=== PATIENT | female | born 1955 | race Caucasian/White ===

== ENCOUNTER 2020-09-30 09:56 | Outpatient (RCR) | payer MEDICAID, SELFPAY ==
[2020-09-30] MEDS: COVID-19 VACC, MRNA(PFIZER)/PF 30 MCG/0.3 ML SYRINGE IM (17:10)
[2020-10-21] MEDS: COVID-19 VACC, MRNA(PFIZER)/PF 30 MCG/0.3 ML SYRINGE IM (17:07)
== END 2020-12-27 23:59 ==
LOC: IMMUN 09:56
PROVIDERS: PCP Family Medicine; Visit Provider Family Medicine
DX: Z23 Encounter for immunization (principal)
CPT/HCPCS: 0001A; 0002A; 91300

== ENCOUNTER 2022-02-11 13:03 | Inpatient (IN) | payer MEDICARE, MEDICAID, SELFPAY ==
[2022-02-11] VITALS (29 sets, daily range): BP systolic 129–209; BP diastolic 79–115; PULSE 68–95; RESP 13–21; TEMP 35.8–37; O2SAT 93–100; BMI 29.7
--- NOTE | 2022-02-11 13:08 | EKG12_ITS ---
Test Reason : cp Blood Pressure : / mmHG Vent. Rate : 090 BPM Atrial Rate : 090 BPM P-R Int : 160 ms QRS Dur : 082 ms QT Int : 396 ms P-R-T Axes : 020 -67 120 degrees QTc Int : 484 ms Normal sinus rhythm Left anterior fascicular block Minimal voltage criteria for LVH, may be normal variant ( George product ) ST & T wave abnormality, consider anterolateral ischemia Prolonged QT Abnormal ECG Confirmed by CHARLINE WARNER, PAULETTE ([id number]), purchase request editor JAZZY GAMBOA ([id number]) on 02/13/2022 9:08:41 AM Referred By: Confirmed By:PAULETTE OLIVIER MD
--- NOTE | 2022-02-11 13:08 | RAD_ITS ---
STUDY: X-RAY CHEST REASON FOR EXAM: Female, 67 years old. chest pain TECHNIQUE: XR Chest 1 View COMPARISON: Prior comparison studies are not available for review at this time. FINDINGS: There is no demonstrated pleural abnormality. Cervical spine fusion hardware noted. Normal size heart. Normal mediastinum and mallory. Normal visualized pulmonary arteries. There is atherosclerotic calcification of the aortic arch with tortuosity. There are diffuse degenerative changes of the visualized thoracic spine. There is degenerative osteoarthritis of the bilateral shoulders. There is no demonstrated abnormality of the visualized soft tissue structures of the upper abdomen. RAD/Chest 1 View (Portable) IMPRESSION: There are no acute findings. Electronically Signed: Artem Blunt MD at 14:15 EDT ,
[2022-02-11 13:23] LABS: Absolute Lymphocyte Count 1.69 X10^3/uL (0.83-4.51); Absolute Neutrophil Count 6.8 X10^3/uL (2.0-7.7); Basophil# 0.03 X10^3/uL; Basophil% 0.3 % (0-1); Eosinophil# 0.04 X10^3/uL; Eosinophils% 0.4 % (0-5); Hematocrit 43.9 % (37-47); Hemoglobin 14.1 g/dL (12.0-15.0); Lymphocyte # 1.69 X10^3/ul (0.83-4.51); Lymphocyte % 18.3 % (19-41); Mean Corp Hgb Conc 32.1 g/dL (32-36); Mean Corpuscular Volume 87.3 fL (81-99); Monocyte# 0.69 X10^3/uL; Monocyte% 7.5 % (0-10); NRBC Flagged by Analyzer 0 % (0-5); Neutrophil # 6.78 X10^3/uL (2.7-7.7); Neutrophil % 73.2 % (47-70); Platelet Count 248 K/mm3 (150-450); RBC Distribution Width CV 13.7 % (11.6-14.6); RBC Distribution Width SD 43.2 fl (35.1-43.9); Red Blood Count 5.03 M/mm3 (4.2-5.4); White Blood Count 9.3 K/mm3 (4.4-11.0)
[2022-02-11 13:47] LABS: Anion Gap 8 (5-15); BUN 9 mg/dL (7-18); BUN/Creat Ratio 12.9 RATIO (10-20); Calcium,Total 9.3 mg/dL (8.5-10.1); Chloride 105 mmol/L (98-107); EST Glomerular Filtration Rate 90 mL/min (>60); Est Glom Filt Rate - Afr Amer 108 mL/min (>60); Estimated Creatinine Clearance 57.83 ml/min; Glucose 132 mg/dL (74-106); Sodium Level 138 mmol/L (136-145); Troponin-I HS 1920 pg/mL (3.0-54.0)
--- NOTE | 2022-02-11 13:54 | EDS_ITS ---
HPI History of Present Illness Chief Complaint: Chest Pain Detail of Chief Complaint: Chest pain that started 2 nights ago Informant: patient Onset/Context/Timing Current Severity: 12/29 Narrative Narrative: Patient presents to the emergency department chest pressure that started 2 nights ago. Patient states that she had an episode in the middle of the night 2 nights ago where she was awakened with severe chest pain radiating to her arms and neck and jaw. Patient began to sweat. She did not seek treatment. Patient had a repeat episode last night. She presents today with chest pressure that radiates into her neck and rates her pain a 6 out of 10. She is never had discomfort like this before. She does have history of prior A. fib. Patient denies recent travel or surgery. Prior Similar Symptoms: No PFSH PFS Medical History (Updated 02/11/22 @ 13:[address] Mimi Bess, DO) Atrial fibrillation Mdahuri's disease Sjogrens syndrome Home Medications cyanocobalamin (vitamin B-12) 1,000 mcg/mL injection solution 1 ml IM QMONTH 02/11/22 [History Last Taken Unknown] levothyroxine 150 mcg tablet 1 tab PO DAILY 02/11/22 [History Last Taken Unknown] metoprolol succinate 100 mg tablet,extended release 24 hr 100 mg PO DAILY 02/11/22 [History Last Taken Unknown] zolpidem 10 mg tablet 10 mg PO DAILY 02/11/22 [History Last Taken Unknown] Allergy/AdvReac Type Severity Reaction Status Date / Time codeine Allergy Swelling Verified 02/11/22 13:04 hydroxychloroquine Allergy Rash Verified 02/11/22 13:04 [From Plaquenil] mecamylamine Allergy Swelling Verified 02/11/22 13:04 morphine Allergy Anaphylaxis Verified 02/11/22 13:52 Sulfa (Sulfonamide Allergy Anaphylaxis Verified 02/11/22 13:52 Antibiotics) Social History Smoking Status: Never smoker ROS ROS ED Review of Systems ROS Unobtainable: other Constitutional Constitutional ED: Reports lethargy; Denies chills, fever(s), sweats or weight loss Eyes Eyes: Denies blurry vision, change in vision or diplopia ENT ENT ED: Denies rhinorrhea or sore throat Cardiovascular Cardiovascular: Reports chest pain and palpitations; Denies orthopnea or racing heartbeat Respiratory/Chest Respiratory/Chest: Reports dyspnea and dyspnea on exertion; Denies cough, orthopnea or sputum Gastrointestinal Gastrointestinal: Denies abdominal pain, diarrhea, nausea or vomiting Genitourinary Genitourinary ED: Denies dysuria, hematuria or urinary frequency Musculoskeletal Musculoskeletal: Denies arthralgias, back pain, myalgias or neck pain Integumentary Denies abscess, Abrasions or rash Neurologic Neurologic: Denies headache(s) or weakness Psychiatric Psychiatric: Denies anxiety, depression or suicidal thoughts Endocrine Endocrinology: Denies polydipsia, polyphagia or polyuria Hematologic/Lymphatic Hematologic/Lymphatic: Denies easy bleeding, easy bruising or lymphadenopathy Allergic/Immunologic Allergic/Immunologic ED: Denies mouth swelling, tongue swelling or urticaria EXAM Physical Exam Const Vital Signs: 02/11/22 13:04 02/11/22 13:38 02/11/22 13:43 Temperature 97.9 F Temperature Source Temporal Pulse Rate 85 86 Respiratory Rate 16 16 Respiratory Effort Short of Breath Blood Pressure 177/115 H 180/114 H Blood Pressure Mean 135 136 Pulse Ox 97 97 Oxygen Delivery Method Room Air Room Air 02/11/22 13:44 Temperature Temperature Source Pulse Rate Respiratory Rate Respiratory Effort Blood Pressure Blood Pressure Mean Pulse Ox Oxygen Delivery Method Room Air Positive well nourished and well developed General Appearance ED: well developed and NAD HEENT Reports TM's clear and moist mucous membranes normocephalic and atraumatic; Negative for trauma or tenderness Tympanic Membrane ED: Yes TM's clear Eyes PERRL and EOMs intact bilaterally General Eye ED: Negative for pale conjunctiva or scleral icterus Neck no lymphadenopathy, supple and no JVD General: Negative for tenderness Chest Wall inspection of chest normal and palpation of chest normal Chest: Negative for tenderness Resp normal respiratory effort and clear to auscultation bilaterally Effort and Inspection: Negative for respiratory distress or pain with movement Auscultation: Negative for rhonchi, wheezes or diminished lung sounds Cardio regular rate, regular rhythm, S1 normal heart sound, S2 normal heart sound and no murmurs Peripheral Pulses: pulses 2+ throughout GI normal to inspection, nondistended, normoactive bowel sounds, soft to palpation, non-tender, non-distended and no masses Back/Spine no CVA tenderness and no thoracic nor lumbar tenderness Extremity normal to inspection General Extremety ED: Negative for edema General Extremity: Negative for edema Neuro oriented x3, CN's II-XII intact bilaterally, no sensory deficits noted and gait normal Sensorium / Orientation: awake, alert, oriented to person, oriented to place and oriented to time Motor Exam: strength 5/5 throughout and strength abnormal Psych mental status grossly normal Skin no rashes or lesions noted and no wounds Heart Score History: Highly Suspicious ECG: Significant ST-Depression Age: >/= 65 years Risk Factors: No Risk Factors Troponin: >/=3 x Normal Limit Score: 8 MDM MDM MDM Narrative Medical decision making narrative: IV line established on arrival. Patient received aspirin. She will be given sublingual nitro. She was started on a heparin drip. I saw patient because of the high volume in the emergency department after her lab work had already returned. She did have an elevated troponin of 1920. I discussed case with cardiology Dr. Andersen who will see patient in the emergency department for non-ST elevation IN. Case will be discussed with hospitalist for admission. Lab Data Attestation: I reviewed the patient's lab results. Labs: Laboratory Results - last 24 hr 02/11/22 02/11/22 13:19 13:19 WBC 9.3 RBC 5.03 Hgb 14.1 Hct 43.9 MCV 87.3 MCH 28.0 MCHC 32.1 RDW Std Deviation 43.2 RDW Coeff of Chivo 13.7 Plt Count 248 MPV 9.0 Immature Gran % (Auto) 0.300 Neut % (Auto) 73.2 H Lymph % (Auto) 18.3 L [place] % (Auto) 7.5 Eos % (Auto) 0.4 Baso % (Auto) 0.3 Absolute Neuts (auto) 6.8 Absolute Lymphs (auto) 1.69 Nucleated RBC % 0 Sodium 138 Potassium 4.0 Chloride 105 Carbon Dioxide 25.0 Anion Gap 8 BUN 9 Creatinine 0.70 Estim Creat Clear Calc 57.83 Est GFR (MDRD) Af Amer 108 Est GFR (MDRD) Non-Af 90 BUN/Creatinine Ratio 12.9 Glucose 132 H Calcium 9.3 Troponin I High Sens 1920 H* Radiography Chest X-Ray - ED: 1 View Diagnostic Testin view chest x-ray obtained interpreted by myself no acute disease process. Official report from radiology pending. EKG Initial EKG: Attestation: I personally reviewed and interpreted this EKG as follows: Comments: Sinus rhythm with a ventricular rate of 90 bpm with old septal infarct noted in subtle half a millimeter of ST elevation in V2. Patient had subtle ST depression in lead I. She had flipped T waves diffusely from V1 to V6. Prior EKG tracings: available for review Prior: Changed Discharge Plan Triage Chief Complaint: Chest Pain ED Provider: Mimi Bess Dx/Rx/DC Orders Clinical Impression: Chest pain, Non-ST elevated myocardial infarction, History of atrial fibrillation Prescriptions: No Action metoprolol succinate 100 mg tablet extended release 24 hr 100 mg PO DAILY Label Comments: TAKE 1 TABLET BY MOUTH EVERY DAY cyanocobalamin (vitamin B-12) 1,000 mcg/mL solution 1 ml IM QMONTH Label Comments: Inject 1ml IM every other month levothyroxine 150 mcg tablet 1 tab PO DAILY Label Comments: Take 1 tablet by mouth once daily. Take on empty stomach. For thyroid. zolpidem 10 mg tablet 10 mg PO DAILY Label Comments: Take 1 tablet by mouth at bedtime as needed (insomnia) for up to 90 days. Primary Care Provider: Scott Rankin Referrals: Scott Rankin [Primary Care Provider] - Disposition Disposition: Acute Care Hospital [facility]
[2022-02-11] MEDS: Aspirin 81 MG TAB.CHEW 324 MG PO (14:02)
--- NOTE | 2022-02-11 14:02 | HP.PCM.HOS_ITS ---
HPI - General General Date of Admission: 02/11/22 Date of Service: 02/11/22 Chief Complaint: chest pain HPI Narrative REMEDIOS GANT, is a 67 F with a PMh as outlined who presents via the ED with a complaint of chest pain. Chest pain apparently started 2 days prior to admission, and was initially retrosternal, and radiated to her jaw. She didnt seek any treatment for this. Chest pain woke her up in the middle of the night. Chest pain recurred again last night and this morning, so she decided to come in to the ED. She admitted to lightheadedness and dizziness as well as nausea and some abdominal pain. She denied any palpitations, cough, vomiting or diarrhea. Review of systems is otherwise negative. Vitals in the ED were temp of 97.9F, TX of 85, BP of 180/114 and RR of 16. She saturating at 97% on room air. CBC was unremarkable, and BMP was also unremarkable. Initial troponin was 1920. EKG showed st depression in lead 1 and inverted t waves in leads V1-6. She is being admitted to be managed for nonstemi [facility] Medical History (Updated 02/11/22 @ 13:[address] Mimi Bess, ) Atrial fibrillation Madhuri's disease Sjogrens syndrome Home Medications cyanocobalamin (vitamin B-12) 1,000 mcg/mL injection solution 1 ml IM QMONTH 02/11/22 [History Last Taken Unknown] levothyroxine 150 mcg tablet 1 tab PO DAILY 02/11/22 [History Last Taken Unknown] metoprolol succinate 100 mg tablet,extended release 24 hr 100 mg PO DAILY 02/11/22 [History Last Taken Unknown] zolpidem 10 mg tablet 10 mg PO DAILY 02/11/22 [History Last Taken Unknown] Allergy/AdvReac Type Severity Reaction Status Date / Time codeine Allergy Swelling Verified 02/11/22 13:04 hydroxychloroquine Allergy Rash Verified 02/11/22 13:04 [From Plaquenil] mecamylamine Allergy Swelling Verified 02/11/22 13:04 morphine Allergy Anaphylaxis Verified 02/11/22 13:52 Sulfa (Sulfonamide Allergy Anaphylaxis Verified 02/11/22 13:52 Antibiotics) Social History Smoking Status: Never smoker ROS Constitutional Constitutional: Denies anorexia, chills, fatigue, fever(s), malaise or weakness Eyes Eyes: Denies change in vision ENT HEENT: Denies ear pain, headache(s), nasal congestion or sore throat Cardiovascular Cardiovascular: Reports chest pain and lightheadedness; Denies dyspnea on exertion, edema, orthopnea, palpitations, paroxysmal nocturnal dyspnea, rapid heart rate or syncope Respiratory/Chest Respiratory/Chest: Denies cough, dyspnea, productive cough, shortness of breath at rest, shortness of breath with exertion or wheezing Gastrointestinal Gastrointestinal: Reports nausea; Denies abdominal pain, diarrhea, dyspepsia or vomiting Genitourinary Genitourinary: Denies dysuria Musculoskeletal Musculoskeletal: Denies arthralgias, back pain or joint swelling Neurologic Neurologic: Denies confusion, dizziness, focal weakness, headache(s), seizure- like activity, seizures or syncope Psychiatric Psychiatric: Denies anxiety Hematologic/Lymphatic Hematologic/Lymphatic: Denies anemia Vital Signs Vital Signs Vital Signs: 02/11/22 13:04 02/11/22 13:38 02/11/22 13:43 Temperature 97.9 F Temperature Source Temporal Pulse Rate 85 86 Respiratory Rate 16 16 Respiratory Effort Short of Breath Blood Pressure 177/115 H 180/114 H Blood Pressure Mean 135 136 Pulse Ox 97 97 Oxygen Delivery Method Room Air Room Air 02/11/22 13:44 Temperature Temperature Source Pulse Rate Respiratory Rate Respiratory Effort Blood Pressure Blood Pressure Mean Pulse Ox Oxygen Delivery Method Room Air Weight Weight: 201 lb Body Mass Index (BMI) 29.7 Physical Exam Const alert, oriented x3 and no apparent distress General Appearance: cooperative HEENT normocephalic, head/scalp atraumatic, hearing grossly normal bilaterally and moist oral mucous membranes Mouth: oral and palatal mucosa normal Eyes PERRL, EOMs intact bilaterally and conjunctivae normal Neck no lymphadenopathy and supple Resp normal respiratory effort, no retractions, no use of accessory muscles and clear to auscultation bilaterally Cardio regular rate, regular rhythm, S1 normal heart sound, S2 normal heart sound and no murmurs GI normal to inspection, nondistended, normoactive bowel sounds, soft to palpation, non-tender and non-distended Extremity normal to inspection, full ROM and no clubbing, cyanosis or edema Neuro oriented x3, CN's II-XII intact bilaterally, moves all extremities and no focal motor deficits Sensorium / Orientation: awake and alert Motor Exam: strength 5/5 throughout Psych affect normal Results Lab / Micro Data Result Diagrams: 02/11/22 13:19 02/11/22 13:19 Labs: Laboratory Results - last 24 hr 02/11/22 13:19: WBC 9.3, RBC 5.03, Hgb 14.1, Hct 43.9, MCV 87.3, MCH 28.0, MCHC 32.1, RDW Std Deviation 43.2, RDW Coeff of Chivo 13.7, Plt Count 248, MPV 9.0, Immature Gran % (Auto) 0.300, Neut % (Auto) 73.2 H, Lymph % (Auto) 18.3 L, [place] % (Auto) 7.5, Eos % (Auto) 0.4, Baso % (Auto) 0.3, Absolute Neuts (auto) 6.8, Absolute Lymphs (auto) 1.69, Nucleated RBC % 0 02/11/22 13:19: Sodium 138, Potassium 4.0, Chloride 105, Carbon Dioxide 25.0, Anion Gap 8, BUN 9, Creatinine 0.70, Estim Creat Clear Calc 57.83, Est GFR (MDRD) Af Amer 108, Est GFR (MDRD) Non-Af 90, BUN/Creatinine Ratio 12.9, Glucose 132 H, Calcium 9.3, Troponin I High Sens 1920 H* Assessment & Plan Assessment/Plan (1) Non-ST elevated myocardial infarction: PLAN: Plan #Nonstemi * admit to ICU as patient is still complaining of chest pain and has elevated BP; * will therefore start on heparin drip and nitro drip * aspirin and plavix loading dose. High intensity statin * initial troponin is 1920; will cycle * EKG showed t wave inversions in V1-V6 * cardiology consulted * #History of afib * currently in normal sinus rhythm * on metoprolol. Not chronically anticoagulated * CHADVASC score: * #History of hypothyroidism: on synthroid #History of mixed connective tissue disease * stable. 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 * to follow up with rheumatology on outpatient basis * DVT prophylaxis: not indicated as she is on heparin drip Code status: full code * Patient counseled extensively about different types of CODE STATUS including full code, DNR CCA and DNR CCA. Patient elects to be full code. Total [id number] time 17 minutes. Charges/Coding Visit Charges Inpatient E&M: 48353 Init Hosp L3 Procedures Hospitalists Procedures: [id number] Advncd Care Plan 30 Min
[2022-02-11] MEDS: Nitroglycerin SL (ED/IMG/CATH) 0.4 MG TABLET SL ×3 (14:03→14:28)
[2022-02-11 14:12] LABS: Prothrombin Time (Protime)PT. 13.3 SECONDS (11.7-14.9)
[2022-02-11 14:14] LABS: Partial Thromboplast Time 34.4 Seconds (24.1-36.2)
[2022-02-11] MEDS: Heparin Injection (Vial) 5,000 UNIT/ML VIAL 6000 UNIT IV (14:16)
[2022-02-11] MEDS: HEPARIN/D5w 25,000 UNITS 25,000 UNITS/250 ML IV.SOLN. 12 UNITS CONT INF (14:18)
[2022-02-11] MEDS: 0.9% Normal Saline 1,000 ML 150 ML IV ×3 (14:34→23:16)
--- NOTE | 2022-02-11 14:50 | PCM.CONS.C ---
Assessment & Plan Assessment/Plan (1) Chest pain: (2) History of atrial fibrillation: (3) Non-ST elevated myocardial infarction: PLAN: 67-year-old patient, presented to the ED here at [facility] With complaint of chest pain. Patient also has been under stress, following COVID vaccination she had symptoms of weakness in upper and lower extremity which improved. Evidently her symptoms has been for the last 2 days which was described typical as retrosternal radiating to her jaw and she did not take any treatment at that time evidently the symptoms get worse in the middle of the night with recurrence of her symptoms of chest pain last night this morning and that prompted patient and her to be seen here in the ER. She has a history of paroxysmal A. fib and was treated in the past with anticoagulation and beta-shahla currently Patient has been on levothyroxine and metoprolol in addition to cyanocobalamin/vitamin B12 Cardiac care plan and recommendations; 1. Patient has significant change in the EKG with recent anteroseptal CT with a clear evidence of T wave inversion and Q wave in the anterior lead and some ST depression noted in the inferior leads. High sensitive troponins I elevated to 1920. 2. Patient to be admitted to the intensive care unit as she is still having symptoms of chest discomfort started on heparin aspirin And to continue beta-shahla, statin with atorvastatin and nitroglycerin as needed 3. We will evaluate with echocardiogram and cardiac catheterization tomorrow. 4. I explained in detail the cardiac care plan to the patient and to the he understands and will proceed with cardiac cath in the morning. HPI Consult Data Date of Consult: 02/11/22 HPI Narrative Reason for Consultation: CAD/non-STEMI HPI Narrative: REMEDIOS GANT, is a 67 F who presents [facility] Medical History (Updated 02/11/22 @ 13:[address] Mimi Bess, DO) Atrial fibrillation Madhuri's disease Sjogrens syndrome Home Medications cyanocobalamin (vitamin B-12) 1,000 mcg/mL injection solution 1 ml IM QMONTH 02/11/22 [History Last Taken Unknown] levothyroxine 150 mcg tablet 1 tab PO DAILY 02/11/22 [History Last Taken Unknown] metoprolol succinate 100 mg tablet,extended release 24 hr 100 mg PO DAILY 02/11/22 [History Last Taken Unknown] zolpidem 10 mg tablet 10 mg PO DAILY 02/11/22 [History Last Taken Unknown] Allergy/AdvReac Type Severity Reaction Status Date / Time codeine Allergy Swelling Verified 02/11/22 13:04 hydroxychloroquine Allergy Rash Verified 02/11/22 13:04 [From Plaquenil] mecamylamine Allergy Swelling Verified 02/11/22 13:04 morphine Allergy Anaphylaxis Verified 02/11/22 13:52 Sulfa (Sulfonamide Allergy Anaphylaxis Verified 02/11/22 13:52 Antibiotics) Social History Smoking Status: Never smoker Physical Exam Narrative Seen and evaluated at bedside, at bedside at time of evaluation Still having retrosternal chest discomfort which has been for the last 2 days 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 Risk Stratification Risk Stratification Applicable: Yes Age >/= 65: Yes >/= 3 CAD Risk Factors (HTN, HLD, DM, family hx of CAD, or current smoker): Yes Aspirin Use in the Past 7 Days: No Severe Angina (>/= episodes in 24 hours): Yes EKG ST Changes >/= 0.5mm: Yes Positive Cardiac Marker: Yes VIV Risk Stratification Score: 5 VIV % Risk: 25% Risk Objective Data Vital Signs: Vital Signs Temp Pulse Resp BP Pulse Ox O2 Del Method 96.5 F L 88 16 137/100 H 94 Room Air 02/11/22 14:32 02/11/22 14:35 02/11/22 14:35 02/11/22 14:35 02/11/22 14:35 02/11/22 14:35 Oxygen Delivery Method Room Air Weight: 201 lb Body Mass Index (BMI) 29.7 Lab / Micro Data Result Diagrams: 02/11/22 13:19 02/11/22 13:19 Labs: Laboratory Results - last 24 hr 02/11/22 13:19: WBC 9.3, RBC 5.03, Hgb 14.1, Hct 43.9, MCV 87.3, MCH 28.0, MCHC 32.1, RDW Std Deviation 43.2, RDW Coeff of Chivo 13.7, Plt Count 248, MPV 9.0, Immature Gran % (Auto) 0.300, Neut % (Auto) 73.2 H, Lymph % (Auto) 18.3 L, [place] % (Auto) 7.5, Eos % (Auto) 0.4, Baso % (Auto) 0.3, Absolute Neuts (auto) 6.8, Absolute Lymphs (auto) 1.69, Nucleated RBC % 0 02/11/22 13:19: Sodium 138, Potassium 4.0, Chloride 105, Carbon Dioxide 25.0, Anion Gap 8, BUN 9, Creatinine 0.70, Estim Creat Clear Calc 57.83, Est GFR (MDRD) Af Amer 108, Est GFR (MDRD) Non-Af 90, BUN/Creatinine Ratio 12.9, Glucose 132 H, Calcium 9.3, Troponin I High Sens 1920 H* 02/11/22 13:58: PT 13.3, INR 1.0, APTT 34.4 Cardiology Labs/Tests 02/11/22 13:19: WBC 9.3, RBC 5.03, Hgb 14.1, Hct 43.9, MCV 87.3, MCH 28.0, MCHC 32.1, Plt Count 248, MPV 9.0, Immature Gran % (Auto) 0.300, Neut % (Auto) 73.2 H, Lymph % (Auto) 18.3 L, [place] % (Auto) 7.5, Eos % (Auto) 0.4, Baso % (Auto) 0.3, Absolute Neuts (auto) 6.8, Nucleated RBC % 0 02/11/22 13:19: Sodium 138, Potassium 4.0, Chloride 105, Carbon Dioxide 25.0, Anion Gap 8, BUN 9, Creatinine 0.70, Est GFR (MDRD) Af Amer 108, Est GFR (MDRD) Non-Af 90, BUN/Creatinine Ratio 12.9, Glucose 132 H, Calcium 9.3 02/11/22 13:58: PT 13.3, INR 1.0, APTT 34.4 Rhythm: Normal sinus rhythm EKG: Q waves and T wave inversion in the anterior septal lead, consistent with a recent anterior CT And ST depression in the inferior lead consistent with ischemia Radiography Diagnostic Testing: Radiology Impression Chest X-Ray 02/11/22 13:08 IMPRESSION: There are no acute findings. Electronically Signed: Artem Blunt MD at 14:15 EDT ,
--- NOTE | 2022-02-11 14:50 | ED.RN ---
REPORT CALLED TO JS LANDAVERDE.
[2022-02-11] MEDS: Nitroglycerin Infusion 250 ML 3 MG IV (16:03)
[2022-02-11 17:00] LABS: BNP,B-Type NATRIURETIC PEPTIDE 136.5 pg/mL (0-100)
[2022-02-11 17:02] LABS: Cholesterol 250 mg/dL (200); High Density Lipoprotein 46 mg/dL; Triglycerides 108 mg/dL; Very Low Density Lipoprotein 22 mg/dL (5-40)
[2022-02-11 17:25] LABS: Troponin-I HS 3253 pg/mL (3.0-54.0)
[2022-02-11 19:18] LABS: Troponin-I HS 3231 pg/mL (3.0-54.0)
[2022-02-11] MEDS: Acetaminophen 325 MG Tablet 650 MG PO (20:26)
[2022-02-11] MEDS: Nitroglycerin Infusion 250 ML 72 MG IV (21:30)
[2022-02-11 22:04] LABS: Partial Thromboplast Time 73.5 Seconds (24.1-36.2)
[2022-02-11] MEDS: Atorvastatin Calcium 40 MG Tablet PO (22:10)
[2022-02-11] MEDS: Zolpidem Tartrate 5 MG Tablet 10 MG PO (22:10)
[2022-02-11 22:17] LABS: Troponin-I HS 4131 pg/mL (3.0-54.0)
[2022-02-11] MEDS: oxyCODONE 5 MG Tablet PO (23:21)
[2022-02-12] VITALS (36 sets, daily range): BP systolic 117–171; BP diastolic 66–99; PULSE 77–103; RESP 16–24; TEMP 36.6–37.1; O2SAT 92–99
[2022-02-12] MEDS: Nitroglycerin Infusion 250 ML 72 MG IV ×3 (01:01→08:28)
[2022-02-12] MEDS: Levothyroxine 150 MCG Tablet PO (04:40)
[2022-02-12] MEDS: Acetaminophen 325 MG Tablet 650 MG PO ×2 (04:41→17:53)
--- NOTE | 2022-02-12 05:55 | ECHOCS_ITS ---
Reason For Study: CHEAT PAIN Procedure This was a 2D Doppler, Color Flow transthoracic echocardiogram. The study was technically difficult. Contrast injection was performed. Exam performed portable in ICU/CCU. Left Ventricle Normal LV size. Severe concentric left ventricular hypertrophy. The estimated ejection fraction is 47 %. Stage 1 diastolic dysfunction. [place] : Hypokinetic. Anterior [place] : Hypokinetic. The rest of the wall segments are normal. Right Ventricle Normal RV size. Normal systolic function. Mitral Valve Normal mitral valve. Tricuspid Valve Normal tricuspid valve. Aortic Valve Normal aortic valve. Pulmonic Valve The pulmonic valve is not well visualized. Great Vessels Normal aortic root. Pericardium/Pleural No pericardial effusion. Medication Diluted definity 2ml given slow IV push to enhance endocardial definition. MMode/2D Measurements & Calculations LVIDd: 5.4 cm IVSd: 1.7 cm Ao root diam: 3.0 cm LVIDs: 3.0 cm LVPWd: 1.5 cm FS: 44.7 % LAV(MOD-sp4): 70.9 ml LVAd ap4: 31.2 cm2 SV(MOD-sp4): 53.2 ml LVLd ap4: 8.0 cm EDV(MOD-sp4): 97.6 ml EDV(sp4-el): 103.3 ml LVAs ap4: 19.2 cm2 LVLs ap4: 6.6 cm ESV(MOD-sp4): 44.3 ml ESV(sp4-el): 47.0 ml EF(MOD-sp4): 54.5 % EF(sp4-el): 54.5 % SV(sp4-el): 56.3 ml LA A4 area: 24.2 cm2 LA dimension(2D): 3.8 cm Doppler Measurements & Calculations MV E max ruddy: 67.4 cm/sec Ao V2 max: 137.3 cm/sec LV V1 max: 117.1 cm/sec MV A max ruddy: 93.4 cm/sec Ao max P.6 mmHg LV V1 max P.5 mmHg MV E/A: 0.72 Ao V2 mean: 93.4 cm/sec LV V1 mean P.9 mmHg Ao mean P.0 mmHg LV V1 mean: 78.2 cm/sec Ao V2 VTI: 26.0 cm LV V1 VTI: 24.5 cm PA V2 max: 156.0 cm/sec PA V2 mean: 93.9 cm/sec ECHO/Echo Complete W/ Contrast Interpretation Summary Normal LV size. The estimated ejection fraction is 47 %. [place] : Hypokinetic. Anterior [place] : Hypokinetic Severe concentric left ventricular hypertrophy. Stage 1 diastolic dysfunction. Contrast injection was performed. Ordering Physician: Lesly Cotton Performed By: Claire Sherman RCS
[2022-02-12] MEDS: 0.9% Normal Saline 1,000 ML 150 ML IV (05:58)
[2022-02-12] MEDS: Metoprolol(XL)Succ 100 MG Tablet PO (08:56)
[2022-02-12] MEDS: Aspirin E.C. 81 MG Tablet PO (08:56)
--- NOTE | 2022-02-12 10:42 | PN.CARD_ITS ---
Subjective Subjective Patient seen and evaluated. Appears to be doing quite well. Underwent cardiac catheterization today. Objective Data Vital Signs: Vital Signs Temp Pulse Resp BP Pulse Ox O2 Del Method 98.6 F 89 17 144/73 H 94 Room Air 02/12/22 08:00 02/12/22 09:00 02/12/22 09:00 02/12/22 09:00 02/12/22 09:00 02/12/22 09:00 Oxygen Delivery Method Room Air Weight: 187 lb 4 oz Body Mass Index (BMI) 29.7 Intake & Output: Intake and Output for Last 24 Hours 02/10/22 02/11/22 02/12/22 23:59 23:59 23:59 Intake Total 1962.50 / 1962.50 2083.6 / 2083.6 Output Total 1699 / 1699 Balance 1961.50 / 166.50 384.6 / 384.6 Lab / Micro Data Result Diagrams: 02/11/22 13:19 02/11/22 13:19 Labs: Laboratory Results - last 24 hr 02/11/22 13:19: WBC 9.3, RBC 5.03, Hgb 14.1, Hct 43.9, MCV 87.3, MCH 28.0, MCHC 32.1, RDW Std Deviation 43.2, RDW Coeff of Chivo 13.7, Plt Count 248, MPV 9.0, Immature Gran % (Auto) 0.300, Neut % (Auto) 73.2 H, Lymph % (Auto) 18.3 L, [place] % (Auto) 7.5, Eos % (Auto) 0.4, Baso % (Auto) 0.3, Absolute Neuts (auto) 6.8, Absolute Lymphs (auto) 1.69, Nucleated RBC % 0 02/11/22 13:19: Sodium 138, Potassium 4.0, Chloride 105, Carbon Dioxide 25.0, Anion Gap 8, BUN 9, Creatinine 0.70, Estim Creat Clear Calc 57.83, Est GFR (MDRD) Af Amer 108, Est GFR (MDRD) Non-Af 90, BUN/Creatinine Ratio 12.9, Glucose 132 H, Calcium 9.3, Troponin I High Sens 1920 H* 02/11/22 13:58: PT 13.3, INR 1.0, APTT 34.4 02/11/22 16:35: B-Natriuretic Peptide 136.5 H 02/11/22 16:35: Triglycerides 108, Cholesterol 250 H, LDL Cholesterol 182 H, VLDL Cholesterol 22, HDL Cholesterol 46 02/11/22 16:35: Troponin I High Sens 3253 H* 02/11/22 18:35: Troponin I High Sens 3231 H* 02/11/22 21:40: Troponin I High Sens 4131 H* 02/11/22 21:40: APTT 73.5 H Rhythm Strip Rhythm Strip: Anterior T wave inversions Cardiology Labs/Tests 02/11/22 13:19: WBC 9.3, RBC 5.03, Hgb 14.1, Hct 43.9, MCV 87.3, MCH 28.0, MCHC 32.1, Plt Count 248, MPV 9.0, Immature Gran % (Auto) 0.300, Neut % (Auto) 73.2 H , Lymph % (Auto) 18.3 L, [place] % (Auto) 7.5, Eos % (Auto) 0.4, Baso % (Auto) 0.3, Absolute Neuts (auto) 6.8, Nucleated RBC % 0 02/11/22 13:19: Sodium 138, Potassium 4.0, Chloride 105, Carbon Dioxide 25.0, Anion Gap 8, BUN 9, Creatinine 0.70, Est GFR (MDRD) Af Amer 108, Est GFR (MDRD) Non-Af 90, BUN/Creatinine Ratio 12.9, Glucose 132 H, Calcium 9.3 02/11/22 13:58: PT 13.3, INR 1.0, APTT 34.4 02/11/22 16:35: B-Natriuretic Peptide 136.5 H 02/11/22 16:35: Triglycerides 108, Cholesterol 250 H, LDL Cholesterol 182 H, VLDL Cholesterol 22, HDL Cholesterol 46 02/11/22 21:40: APTT 73.5 H Rhythm: EKG: ECHO: Stress Test: Cardiac Cath: PCI: CT Surgery: Holter monitor: EPS: PPM: CXR: Chest CT Scan: Radiography Diagnostic Testing: Radiology Impression Chest X-Ray 02/11/22 13:08 IMPRESSION: There are no acute findings. Electronically Signed: Artem Blunt MD at 14:15 EDT , Physical Exam Const alert, oriented x3 and no apparent distress General Appearance: cooperative HEENT hearing grossly normal bilaterally Head and Scalp: atraumatic Eyes EOMs intact bilaterally Neck General: normal visual inspection Chest inspection of chest normal and palpation of chest normal Resp normal respiratory effort Auscultation: clear to auscultation bilaterally Cardio regular rate, regular rhythm, S1 normal heart sound and S2 normal heart sound Jugular Venous Distention: JVD GI normal to inspection, nondistended, normoactive bowel sounds Extremity normal capillary refill and no pedal edema Peripheral Pulses: Yes pulses 2+ throughout and femoral pulses present Skin no rashes or lesions noted Neuro oriented x3 and CN's II-XII intact bilaterally Psych Appearance: grossly normal and appropriate Assessment & Plan Assessment/Plan (1) Non-ST elevated myocardial infarction: PLAN: She presented with a non-ST elevation myocardial infarction. EKG today demonstrates T wave inversions. She underwent a cardiac catheterization which demonstrated the following: Normal left main coronary artery. Left anterior descending artery which is totally occluded in the midsegment and the second diagonal vessel with a 95% stenosis. Left circumflex artery with no high-grade stenosis. Dominant right coronary artery with no high-grade stenosis. Mild left ventricular systolic dysfunction with anterior hypokinesis estimated ejection fraction 45%. Based on the above angiographic findings patient would undergo an attempted PCI to the LAD. (2) Hypertension: PLAN: Blood pressure appears to be rather elevated. Would recommend starting her on a beta-shahla and KAT inhibitor or ARB. (3) Hyperlipemia, mixed: PLAN: He does have a history of hyperlipidemia and we will start her on high intensity statin. (4) History of atrial fibrillation: PLAN: She is in sinus rhythm at this time and I do not see any evidence of atrial fibrillation.
--- NOTE | 2022-02-12 10:51 | CL.D_ITS ---
Patient Name: REMEDIOS GANT Study Date: 02/12/2022 Performing: Goyo Jarvis MD Ht: 69 inches 175 cm : 1955 Wt: 187.6 lbs 85 kg Age: 67 Gender: female BSA: 2.01 PROCEDURE(S) PERFORMED DC01-([id number])LHC/COR/LV CLINICAL PROFILE AND INDICATIONS Indications: Suspected CAD Heart Failure: None Stress/Imaging Stress/Image Study Performed: No CONCLUSIONS High-grade mid LAD disease and high-grade second diagonal vessel disease with mild left ventricular s ystolic dysfunction. RECOMMENDATIONS Referred for immediate PCI DESCRIPTION OF PROCEDURE The patient arrived to the procedure lab. The risks and benefits of the procedure as well as a full d escription of our services here and current unavailability of surgical backup were fully explained to the patient and/or their significant other prior to the catheterization. The Timeout was completed, verifying the correct patient and procedure. The patient's procedural site was prepped and draped in the usual fashion. Local anesthetic was given subcutaneously to right radial region with Lidocaine 2% . Using a modified Seldinger technique, arterial access was obtained via the right radial artery, a 6 Fr sheath was inserted. Right Coronary Artery selective angiography was then performed in multiple v iews using a 5 Fr. 4.0 [place] catheter. Left Coronary Artery selective angiography was performed in mu ltiple views using a 5 Fr. 4.0 [place] catheter. Left Ventriculography was performed in KAN projection using a 5 Fr. Pigtail catheter. LV to AO pullback pressures were then recorded. CORONARY ANGIOGRAPHY DOMINANCE: Right Dominant LEFT HEART ASSESSMENT Left Ventricular Ejection Fraction: by LV Gram 45 % Anterior Hypokinesis - Moderate Depressed Left Ventricular systolic function LEFT MAIN: Angiographically normal LEFT ANTERIOR DESCENDING ARTERY: MID LAD: is occluded DIAGONAL 2: Proximal - 95 RIGHT CORONARY ARTERY: No significant disease noted COMPLICATIONS PROCEDURE MEDICATIONS Fentanyl 50 mcg IV Versed 1 mg IV Versed 1 mg IV Versed 1 mg IV Versed 1 mg IV Brilinta 180 mg PO @ 02/12/2022 10:35:16 Heparin given IA 02/12/2022 10:21:37 Nitro glycerin 25mg / 250ml D5W @ 120 mcg/min IV from ICU 02/12/2022 10:07:22 Metoprolol 2.5 mg 02/12/2022 10:35:30 Verapamil 2.5mg, Ntg 100mcgs, 3000 units of Heparin given IA 02/12/2022 10:21:37 SUMMARY OF HEMODYNAMIC DATA Time AIR REST ECG 10:09:41 AO 136/80 (106) SA 10:23:02 LV 144/14, 33 10:30:22 LV 148/13, 32 10:30:31 LV 165/22, 36 10:31:23 LVp 149/21, 39 10:31:28 AOp 159/91 (120) 10:31:35 AO 187/72 (107) 10:35:39 Signed By Goyo Jarvis MD On 02/12/2022 10:50:05 AM Goyo Jarvis MD
--- NOTE | 2022-02-12 11:11 | PN.HOSP_ITS ---
Subjective Subjective Patient seen and examined. Chest pain had improved with the nitro drip. She complained of a headache due to the nitro drip. Review of systems is otherwise negative. She is for cardiac cath today. She has remained hemodynamically stable. Objective Data Objective Data Vital Signs: Vital Signs Temp Pulse Resp BP Pulse Ox O2 Del Method 98.6 F 89 17 144/73 H 94 Room Air 02/12/22 08:00 02/12/22 09:00 02/12/22 09:00 02/12/22 09:00 02/12/22 09:00 02/12/22 09:00 Oxygen Delivery Method Room Air Weight: 187 lb 4 oz Body Mass Index (BMI) 29.7 Intake & Output: Intake and Output for Last 24 Hours 02/10/22 02/11/22 02/12/22 23:59 23:59 23:59 Intake Total 1962.50 / 1962.50 2083.6 / 2083.6 Output Total 1699 / 1699 Balance 1962.50 / 1663.50 384.6 / 384.6 Lab / Micro Data Result Diagrams: 02/11/22 13:19 02/11/22 13:19 Labs: Laboratory Results - last 24 hr 02/11/22 13:19: WBC 9.3, RBC 5.03, Hgb 14.1, Hct 43.9, MCV 87.3, MCH 28.0, MCHC 32.1, RDW Std Deviation 43.2, RDW Coeff of Chivo 13.7, Plt Count 248, MPV 9.0, Imm ature Gran % (Auto) 0.300, Neut % (Auto) 73.2 H, Lymph % (Auto) 18.3 L, [place] % (Auto) 7.5, Eos % (Auto) 0.4, Baso % (Auto) 0.3, Absolute Neuts (auto) 6.8, Absolute Lymphs (auto) 1.69, Nucleated RBC % 0 02/11/22 13:19: Sodium 138, Potassium 4.0, Chloride 105, Carbon Dioxide 25.0, Anion Gap 8, BUN 9, Creatinine 0.70, Estim Creat Clear Calc 57.83, Est GFR (MDRD) Af Amer 108, Est GFR (MDRD) Non-Af 90, BUN/Creatinine Ratio 12.9, Glucose 132 H, Calcium 9.3, Troponin I High Sens 1920 H* 02/11/22 13:58: PT 13.3, INR 1.0, APTT 34.4 02/11/22 16:35: B-Natriuretic Peptide 136.5 H 02/11/22 16:35: Triglycerides 108, Cholesterol 250 H, LDL Cholesterol 182 H, VLDL Cholesterol 22, HDL Cholesterol 46 02/11/22 16:35: Troponin I High Sens 3253 H* 02/11/22 18:35: Troponin I High Sens 3231 H* 02/11/22 21:40: Troponin I High Sens 4131 H* 02/11/22 21:40: APTT 73.5 H Radiography Diagnostic Testing: Radiology Impression Chest X-Ray 02/11/22 13:08 IMPRESSION: There are no acute findings. Electronically Signed: Artem Blunt MD at 14:15 EDT Reading Location ID and State: [facility] / [place] , Service support , Rhythm Strip Rhythm Strip: Anterior T wave inversions Physical Exam Const alert, oriented x3 and no apparent distress General Appearance: cooperative HEENT normocephalic, head/scalp atraumatic, hearing grossly normal bilaterally and moist oral mucous membranes Head and Scalp: normocephalic Mouth: oral and palatal mucosa normal Eyes PERRL, EOMs intact bilaterally and conjunctivae normal Neck no lymphadenopathy and supple Resp normal respiratory effort, no retractions, no use of accessory muscles and clear to auscultation bilaterally Cardio regular rate, regular rhythm, S1 normal heart sound, S2 normal heart sound and no murmurs GI normal to inspection, nondistended, normoactive bowel sounds, soft to palpation, non-tender and non-distended Extremity normal to inspection, full ROM and no clubbing, cyanosis or edema Neuro oriented x3, CN's II-XII intact bilaterally, moves all extremities and no focal motor deficits Sensorium / Orientation: awake and alert Motor Exam: strength 5/5 throughout Psych affect normal Assessment & Plan Assessment/Plan (1) Non-ST elevated myocardial infarction: PLAN: Plan #Nonstemi * on heparin drip and nitro drip * aspirin and plavix loading dose. High intensity statin * initial troponin was 1920 and trended up to a peak of 4131 * EKG showed t wave inversions in V1-V6 * cardiology on board. for cardiac cath today * #History of afib * currently in normal sinus rhythm * on metoprolol. Not chronically anticoagulated * * #History of hypothyroidism: on synthroid #History of mixed connective tissue disease * stable. 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 * to follow up with rheumatology on outpatient basis * DVT prophylaxis: not indicated as she is on heparin drip Code status: full code * Charges/Coding Visit Charges Inpatient E&M: 25450 Subs Hosp L3
--- NOTE | 2022-02-12 12:00 | EKG12_ITS ---
Test Reason : AM EKG Blood Pressure : / mmHG Vent. Rate : 086 BPM Atrial Rate : 086 BPM P-R Int : 162 ms QRS Dur : 090 ms QT Int : 406 ms P-R-T Axes : 016 -59 188 degrees QTc Int : 485 ms Normal sinus rhythm Left anterior fascicular block Septal infarct , age undetermined ST & T wave abnormality, consider anterolateral ischemia Abnormal ECG When compared with ECG of 12-FEB-2022 12:07, MANUAL COMPARISON REQUIRED, DATA IS UNCONFIRMED Confirmed by CHARLINE WARNER, PAULETTE ([id number]), subeditor JAZZY GAMBOA ([id number]) on 02/14/2022 12:58:50 PM Referred By: JEREMY Confirmed By:PAULETTE OLIVIER MD
[2022-02-12 12:17] LABS: Hemoglobin 11.6 g/dL (12.0-15.0); Mean Corp Hgb Conc 32.2 g/dL (32-36); Mean Corpuscular Hgb 28.7 pg (27.0-32.0); Mean Corpuscular Volume 89.1 fL (81-99); Mean Platelet Vol. 9.1 fl (6.2-12.0); Platelet Count 184 K/mm3 (150-450); RBC Distribution Width SD 45.6 fl (35.1-43.9); Red Blood Count 4.04 M/mm3 (4.2-5.4); White Blood Count 10.2 K/mm3 (4.4-11.0)
[2022-02-12] MEDS: 0.9% Normal Saline 1,000 ML 70 ML IV (12:36)
--- NOTE | 2022-02-12 13:25 | CASEMGMT ---
RN CM Face to Face with patient for initial transition planning/care coordination assessment. RN CM introduced self and role at [facility]. Patient lying in bed, alert and oriented. Patient willing to participate in assessment and is able to answer all questions appropriately. Care providers, pharmacy, and demographics verified. Patient wishes to discharge home, denies need for home health at this time. Patient states she has no further needs or concerns at this time. CM to follow for discharge planning needs that may arise. PCP: [facility] Specialists: none Preferred Pharmacy: [facility]; [facility] retail at discharge [facility] Prescription Benefit: yes Living Will/HPOA: none LNOK: , daughter Living Arrangements: Patient lives with in a split story home with 6 steps and railing between levels. Patient states she is independent at home and able to ambulate stairs. Transportation: self, daughter DME/HHC: Patient denies DME or previous HHC. Disposition Plan: Patient to discharge home with family support and follow-up plans in place. Pam TOLEDO, RN, CM
--- NOTE | 2022-02-12 13:59 | CRPHASE1_ITS ---
Patient Communication PHII Cardiac Rehab Discussed with Patient:: Yes Guide to Cardiac Rehab Given to Patient:: Yes Cardiac Rehab Facility Choice List Given to Patient:: Yes Choice Program [facility] CR PHII:: Communication Given to CR, Refer to [facility] Refer Phase II Cardiac Rehab:: Yes Sessions:: 36 sessions - 3 days/wk, 12 weeks Cardiac Rehabilitation Info Cardiac Rehabilitation Program Information: Cardiac Rehabilitation is important for patients like you who are recovering from a heart problem. Cardiac rehabilitation programs are recognized as integral to the continued care of the patient with coronary heart disease. The cardiac rehabilitation program is designed to optimize a patient's physical, psychological, and social functioning. Health health care administrator work in cardiac rehabilitation programs and assist you with getting the treatments you need to get stronger and healthier - like exercise, healthy eating habits, and medications. Cardiac rehabilitation has been show to help people with heart problems live longer and have better life enjoyment than people who do not go to cardiac rehabilitation. Please contact the Cardiac Rehabilitation Program at [facility] at in two weeks if you have not heard from them.
--- NOTE | 2022-02-12 14:00 | CRPH1.INST_ITS ---
General Education CAD and cardiac anatomy and function:: Patient communicates acknowledgment, Needs reinforcement Explanation of diagnoses and procedures:: Patient communicates acknowledgment, Needs reinforcement Sign/Symptoms of [place]:: Patient communicates acknowledgment, Needs reinforcement Antiplatelet therapy: Patient communicates acknowledgment, Needs reinforcement Proper use of NTG-SL: Patient communicates acknowledgment, Needs reinforcement Emergency procedures and activation of EMS: Patient communicates acknowledgment, Family returns demonstration Compliance of all prescribed medications: Patient communicates acknowledgment, Family returns demonstration Smoking Patient Nicotine/Smoking Risk Factors Are:: Never smoked Dyslipidemia Recommendations Include:: Lipid profile not available Overweight/Obesity Patient Overweight/Obesity Risk Factors Are:: Obesity - > or = 30 Recommendations Include:: Weight loss of 5-10%, Reduced calorie diet, Exercise 5-7 times/week Overweight/Obesity:: Patient communicates acknowledgment, Needs reinforcement Hypertension Patient Hypertension Risk Factors Are:: No documented hx of HTN Heart Disease Heart Disease Response Code:: Patient communicates acknowledgment, Needs reinforcement Diabetes Patient Diabetes Risk Factors Are:: No documented hx of diabetes Metabolic Syndrome Recommendations Include:: Does not meet criteria Sedentary Patient Sedentary Risk Factors Are:: Lack of regular exercise Recommendations Include:: Aerobic exercise 5-7 times/week for 20-30 minutes continuously, Benefits of regular exercise, Discussed home walking program, M onitored Outpatient Cardiac Rehab Sedentary Response Code:: Patient communicates acknowledgment, Needs reinforcement Stress Recommendations Include:: Identification of stressors, and assessment of coping skills, Stress management techniques Stress Response Code:: Patient communicates acknowledgment, Needs reinforcement
--- NOTE | 2022-02-12 14:18 | CL.I_ITS ---
Patient Name: REMEDIOS GANT Study Date: 02/12/2022 Performing: Vida Uribe MD Ht: 69 inches 175 cm : 1955 Wt: 187.6 lbs 85 kg Age: 67 Gender: female BSA: 2.01 PROCEDURE(S) PERFORMED IC12-([id number])DNIAH W/WO PTCA, SINGLE CORONARY ARTERY IC02-([id number])PTCA, EACH ADD'L CORONARY ART, SAME MAJOR CLINICAL PROFILE AND CO-MORBIDITIES Indications: Suspected CAD Heart Failure: None Stress/Imaging Stress/Image Study Performed: No CONCLUSIONS Successful thrombectomy and DINAH to mLAD. Successful PTCA alone to ostial D2 RECOMMENDATIONS DESCRIPTION OF PROCEDURE The patient arrived to the procedure lab. The risks and benefits of the procedure as well as a full d escription of our services here and current unavailability of surgical backup were fully explained to the patient and/or their significant other prior to the catheterization. The Timeout was completed, verifying the correct patient and procedure. The patient's procedural site was prepped and draped in the usual fashion. Local anesthetic was given subcutaneously to right radial region with Lidocaine 2% Using a modified Seldinger technique,arterial access was obtained via the right radial artery, a 6Fr sheath was inserted. Right Coronary Artery selective angiography was then performed in multiple view s using a 5 Fr. 4.0 [place] catheter. Left Coronary Artery selective angiography was performed in multi ple views using a 5 Fr. 4.0 [place] catheter. Left Ventriculography was performed in KAN projection usi ng a 5 Fr. Pigtail catheter. LV to AO pullback pressures were then recorded.The images were reviewed and options discussed. A decision was then made to proceed with an Intervention, IVUS o r other adjunct procedure. XB 3 Guide catheter was inserted and engaged into the LCA. BMW Guide wire was advanced to the LAD . Diagonal 2 2.5x12 Emer[place] Balloon catheter was inserted. 1.5x15 [place] Balloon catheter was inserted . Balloon catheter was advanced across lesion in the first diagonal, ostial. PTCA balloon inflated at 12 atms for 12 secs. PTCA balloon inflated at 14 atms for 14 secs. Angiogram performed post balloon dilatation. PTCA balloon inflated at 14 atms for 15 secs. PTCA balloon inflated at 14 atms for 9 secs . Angiogram performed post balloon dilatation. PTCA balloon inflated at 14 atms for 18 secs. 2.5x12 E merge Balloon catheter was reinserted Balloon catheter was advanced across lesion in the second diago nal, ostial PTCA balloon inflated at 12 atms for 60 secs. PTCA balloon inflated at 14 atms for 10 sec s. Guide wire was repositioned to the LAD Priority One inserted Pass # 1 Priority One Removed Angiogr am performed post balloon dilatation. 2.5x12 Emerge Balloon catheter was inserted. Balloon catheter was advanced across lesion in the LAD, mid. PTCA balloon inflated at 7 atms for 15 secs. Ang iogram performed post balloon dilatation. Orsiro 2.75x13 Drug Eluting stent was inserted. Drug Elutin g stent was advanced across the lesion in the LAD, mid. Angiogram performed post stent deployment. The arterial sheath was pulled and a TR Band was applied for hemostasis w/ 16ml air INTERVENTION INFORMATION LESION SITE: 2nd Diagonal (Ostial) Lesion Complexity: High/C, chronic total occlusion: No, lesion at bifurcation: Yes, thrombus present: No, lesion length: 10 mm, culprit lesion: Yes, Previously treated lesion: No Pre Stenosis: 80 % Pre intervention VIV flow: 3 PROCEDURE: Balloon Angioplasty Post Stenosis: 60 % Post intervention VIV flow: 3 Lesion Devices: Alaniz .014 BMW Maxie Straight 190cm Cardinal 6 Fr XB3.0 100cm Guide Catheter Fer Sci EMERGE MR 2.50x12 BALLOON Fer Sci EMERGE MR 1.50x15 BALLOON LESION SITE: LAD (Mid) Lesion Complexity: High/C, chronic total occlusion: No, lesion at bifurcation: Yes, thrombus present: Yes, lesion length: 12 mm, culprit lesion: Yes, Previously treated lesion: No Pre Stenosis: 100 % Pre intervention VIV flow: 0 PROCEDURE: Thrombectomy Drug Eluting Stent with pre dilatation. Post Stenosis: 0 % Post intervention VIV flow: 3 Lesion Devices: Alaniz .014 BMW Maxie Straight 190cm Cardinal 6 Fr XB3.0 100cm Guide Catheter Fer Sci EMERGE MR 2.50x12 BALLOON Terumo Priority One Aspiration Catheter Biotronik Orsiro [place] MR DINAH 2.75x13 COMPLICATIONS No Complications PROCEDURE MEDICATIONS Fentanyl 50 mcg IV Versed 1 mg IV Versed 1 mg IV Versed 1 mg IV Versed 1 mg IV Brilinta 180 mg PO @ 02/12/2022 10:35:16 Heparin given IA 02/12/2022 10:21:37 Heparin 4000 unit(s) IV 02/12/2022 10:48:32 Nitro glycerin 25mg / 250ml D5W @ 120 mcg/min IV from ICU 02/12/2022 10:07:22 Metoprolol 2.5 mg 02/12/2022 10:35:30 Verapamil 2.5mg, Ntg 100mcgs, 3000 units of Heparin given IA 02/12/2022 10:21:37 SUMMARY OF HEMODYNAMIC DATA Time AIR REST ECG 10:09:41 AO 136/80 (106) SA 10:23:02 LV 144/14, 33 10:30:22 LV 148/13, 32 10:30:31 LV 165/22, 36 10:31:23 LVp 149/21, 39 10:31:28 AOp 159/91 (120) 10:31:35 AO 187/72 (107) 10:35:39 AO 171/97 (129) 11:01:45 Signed By Vida Uribe MD On 02/12/2022 14:17:18 Vida Uribe MD
[2022-02-12] MEDS: Losartan Potassium 50 MG Tablet PO (18:31)
[2022-02-12] MEDS: Atorvastatin Calcium 40 MG Tablet PO (21:48)
[2022-02-12] MEDS: Ketorolac 15 MG/ML Vial IV (21:48)
[2022-02-12] MEDS: TICAGRELOR 90 MG TABLET PO (21:48)
[2022-02-12] MEDS: LORazepam 0.5 MG Tablet PO (21:48)
[2022-02-12] MEDS: 0.9% Saline Lock 10 ML Syringe IV (21:49)
[2022-02-12] MEDS: Zolpidem Tartrate 5 MG Tablet 10 MG PO (23:13)
[2022-02-13] VITALS (15 sets, daily range): BP systolic 108–139; BP diastolic 65–94; PULSE 78–96; RESP 15–21; TEMP 36.6–36.9; O2SAT 94–98
[2022-02-13] MEDS: Levothyroxine 150 MCG Tablet PO (05:33)
[2022-02-13 05:43] LABS: Hematocrit 36.5 % (37-47); Hemoglobin 11.8 g/dL (12.0-15.0); Mean Corp Hgb Conc 32.3 g/dL (32-36); Mean Corpuscular Hgb 28.2 pg (27.0-32.0); Mean Corpuscular Volume 87.1 fL (81-99); Mean Platelet Vol. 9.1 fl (6.2-12.0); Platelet Count 186 K/mm3 (150-450); RBC Distribution Width CV 14.2 % (11.6-14.6); RBC Distribution Width SD 45.1 fl (35.1-43.9); Red Blood Count 4.19 M/mm3 (4.2-5.4); White Blood Count 9.7 K/mm3 (4.4-11.0)
[2022-02-13 06:08] LABS: ALB/GLOB Ratio 0.8 RATIO (0.9-2.4); AST(SGOT) 50 U/L (15-37); Alanine Aminotransfer ALT/SGPT 21 U/L (13-56); Alkaline Phosphatase 92 U/L (45-117); Anion Gap 6 (5-15); BUN 9 mg/dL (7-18); BUN/Creat Ratio 14.4 RATIO (10-20); Calcium,Total 8.9 mg/dL (8.5-10.1); Chloride 109 mmol/L (98-107); Creatinine, Serum 0.62 mg/dL (0.55-1.02); EST Glomerular Filtration Rate 102 mL/min (>60); Est Glom Filt Rate - Afr Amer 123 mL/min (>60); Estimated Creatinine Clearance 57.83 ml/min; Globulin 3.7 g/dL (2.2-4.2); Glucose 116 mg/dL (74-106); Potassium 3.6 mmol/L (3.5-5.1); Protein, Total 6.7 g/dL (6.4-8.2); Sodium Level 139 mmol/L (136-145)
[2022-02-13] MEDS: Aspirin E.C. 81 MG Tablet PO (08:25)
--- NOTE | 2022-02-13 08:54 | PN.CARD_ITS ---
Subjective Subjective Patient seen and evaluated and had a good night. Objective Data Vital Signs: Vital Signs Temp Pulse Resp BP Pulse Ox O2 Del Method 97.8 F 94 19 H 126/91 H 96 Room Air 02/13/22 04:00 02/13/22 07:00 02/13/22 07:00 02/13/22 07:00 02/13/22 07:00 02/13/22 07:00 Oxygen Delivery Method Room Air Weight: 186 lb 4.65 oz Body Mass Index (BMI) 29.7 Intake & Output: Intake and Output for Last 24 Hours 02/11/22 02/12/22 02/13/22 23:59 23:59 23:59 Intake Total 1962.50 / 1962.50 3759.26 / 3759.26 Output Total 2599 / 2599 Balance 1962.50 / 1663.50 1160.26 / 1160.26 Lab / Micro Data Result Diagrams: 02/13/22 05:30 02/13/22 05:30 Labs: Laboratory Results - last 24 hr 02/12/22 12:05: WBC 10.2, RBC 4.04 L, Hgb 11.6 L, Hct 36.0 L, MCV 89.1, MCH 28.7, MCHC 32.2, RDW Std Deviation 45.6 H, RDW Coeff of Chivo 14.0, Plt Count 184, MPV 9.1 02/13/22 05:30: WBC 9.7, RBC 4.19 L, Hgb 11.8 L, Hct 36.5 L, MCV 87.1, MCH 28.2, MCHC 32.3, RDW Std Deviation 45.1 H, RDW Coeff of Chivo 14.2, Plt Count 186, MPV 9.1 02/13/22 05:30: Sodium 139, Potassium 3.6, Chloride 109 H, Carbon Dioxide 24.0, Anion Gap 6, BUN 9, Creatinine 0.62, Estim Creat Clear Calc 57.83, Est GFR (MDRD) Af Amer 123, Est GFR (MDRD) Non-Af 102, BUN/Creatinine Ratio 14.4, Glucose 116 H, Calcium 8.9, Total Bilirubin 1.00, AST 50 H, ALT 21, Alkaline Phosphatase 92, Total Protein 6.7, Albumin 3.0 L, Globulin 3.7, Albumin/Globulin Ratio 0.8 L Rhythm Strip Rhythm Strip: Anterior T wave inversions Cardiology Labs/Tests 02/12/22 12:05: WBC 10.2, RBC 4.04 L, Hgb 11.6 L, Hct 36.0 L, MCV 89.1, MCH 28.7, MCHC 32.2, Plt Count 184, MPV 9.1 02/13/22 05:30: WBC 9.7, RBC 4.19 L, Hgb 11.8 L, Hct 36.5 L, MCV 87.1, MCH 28.2, MCHC 32.3, Plt Count 186, MPV 9.1 02/13/22 05:30: Sodium 139, Potassium 3.6, Chloride 109 H, Carbon Dioxide 24.0, Anion Gap 6, BUN 9, Creatinine 0.62, Est GFR (MDRD) Af Amer 123, Est GFR (MDRD) Non-Af 102, BUN/Creatinine Ratio 14.4, Glucose 116 H, Calcium 8.9, Total Bilirubin 1.00 Rhythm: EKG: ECHO: Stress Test: Cardiac Cath: PCI: CT Surgery: Holter monitor: EPS: PPM: CXR: Chest CT Scan: Radiography Diagnostic Testing: Radiology Impression Echocardiogram 02/12/22 05:55 Interpretation Summary Normal LV size. The estimated ejection fraction is 47 %. [place] : Hypokinetic. Anterior [place] : Hypokinetic Severe concentric left ventricular hypertrophy. Stage 1 diastolic dysfunction. Contrast injection was performed. __ Ordering Physician: Lesly Cotton Performed By: Claire Sherman RCS Physical Exam Const alert, oriented x3 and no apparent distress General Appearance: cooperative HEENT hearing grossly normal bilaterally Head and Scalp: atraumatic Eyes EOMs intact bilaterally Neck General: normal visual inspection Chest inspection of chest normal and palpation of chest normal Resp normal respiratory effort Auscultation: clear to auscultation bilaterally Cardio regular rate, regular rhythm, S1 normal heart sound and S2 normal heart sound Jugular Venous Distention: JVD GI normal to inspection, nondistended, normoactive bowel sounds Extremity normal capillary refill and no pedal edema Peripheral Pulses: Yes pulses 2+ throughout and femoral pulses present Skin no rashes or lesions noted Neuro oriented x3 and CN's II-XII intact bilaterally Psych Appearance: grossly normal and appropriate Assessment & Plan Assessment/Plan (1) Non-ST elevated myocardial infarction: PLAN: She presented with a non-ST elevation myocardial infarction. EKG today demonstrates T wave inversions. She underwent a cardiac catheterization which demonstrated the following: Normal left main coronary artery. Left anterior descending artery which is totally occluded in the midsegment and the second diagonal vessel with a 95% stenosis. Left circumflex artery with no high-grade stenosis. Dominant right coronary artery with no high-grade stenosis. Mild left ventricular systolic dysfunction with anterior hypokinesis estimated e jection fraction 45%. Based on the above angiographic findings patient underwent successful PCI to the LAD and diagonal vessel. This morning she is doing quite well. (2) Hypertension: PLAN: Blood pressure appears to be rather elevated. Would recommend continuing her on a beta-shahla and KAT inhibitor or ARB. (3) Hyperlipemia, mixed: PLAN: He does have a history of hyperlipidemia and we will start her on high intensity statin. (4) History of atrial fibrillation: PLAN: She is in sinus rhythm at this time and I do not see any evidence of atrial fibrillation. Patient can be discharged for outpatient follow-up.
--- NOTE | 2022-02-13 10:00 | EKG12_ITS ---
Test Reason : CHEST PAIN Blood Pressure : / mmHG Vent. Rate : 091 BPM Atrial Rate : 091 BPM P-R Int : 154 ms QRS Dur : 086 ms QT Int : 394 ms P-R-T Axes : 023 -61 214 degrees QTc Int : 484 ms Normal sinus rhythm Left anterior fascicular block Septal infarct , age undetermined ST & T wave abnormality, consider anterolateral ischemia Abnormal ECG Confirmed by JW WARNER, BOBBY ([id number]), photo editor JAZZY GAMBOA ([id number]) on 02/15/2022 12:54:27 PM Referred By: CHARLINE Confirmed By:BOBBY ESCALERA MD
[2022-02-13] MEDS: Metoprolol(XL)Succ 100 MG Tablet PO (10:13)
[2022-02-13] MEDS: Losartan Potassium 50 MG Tablet PO (10:13)
[2022-02-13] MEDS: TICAGRELOR 90 MG TABLET PO (10:13)
--- NOTE | 2022-02-13 11:45 | DS.PCM_ITS ---
Providers Date of Admission: 02/11/22 Date of Discharge: 02/13/22 Primary Care Physician: Scott Rankin Consultations 02/11/22 15:06 Consult: Cardiology Routine Consulting Provider: Ciaran Walker Reason for Consult: nonstemi EMERGENT Consult: No MD Notified: Yes Date Notified: 02/11/22 Time Notified: 14:58 Method of Notification: Verbal Reason For Visit: ACS, CHEST PAIN, HX OF A-FIB Diagnosis Discharge Diagnosis (1) Non-ST elevated myocardial infarction: Status: Acute Code(s): I21.4 - Non-ST elevation (NSTEMI) myocardial infarction (2) Hypertension: Status: Chronic Code(s): I10 - Essential (primary) hypertension (3) Hyperlipemia, mixed: Status: Acute Code(s): E78.2 - Mixed hyperlipidemia (4) History of atrial fibrillation: Status: Acute Code(s): Z86.79 - Personal history of other diseases of the circulatory system Plan #Nonstemi * on heparin drip and nitro drip * aspirin and plavix loading dose. High intensity statin * initial troponin was 1920 and trended up to a peak of 4131 * EKG showed t wave inversions in V1-V6 * cardiology on board. for cardiac cath today * #History of afib * currently in normal sinus rhythm * on metoprolol. Not chronically anticoagulated * * #History of hypothyroidism: on synthroid #History of mixed connective tissue disease * stable. 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 * to follow up with rheumatology on outpatient basis * DVT prophylaxis: not indicated as she is on heparin drip Code status: full code * Medications at Discharge Home Medications cyanocobalamin (vitamin B-12) 1,000 mcg/mL injection solution 1 ml IM QMONTH 02/11/22 levothyroxine 150 mcg tablet 1 tab PO DAILY 02/11/22 metoprolol succinate 100 mg tablet,extended release 24 hr 100 mg PO DAILY 02/11/22 zolpidem 10 mg tablet 10 mg PO DAILY 02/11/22 aspirin 81 mg tablet,delayed release 81 mg PO BREAKFAST #30 tabs 02/13/22 atorvastatin 40 mg tablet 40 mg PO QHS #30 tabs 02/13/22 losartan 50 mg tablet 50 mg PO DAILY #30 tabs 02/13/22 ticagrelor 90 mg tablet (Brilinta) 90 mg PO BID #60 tabs 02/13/22 Hospital Course Operations None Procedures 2-D Echocardiogram and Cardiac catheterization Summary of Care Provided Minutes Spent on Discharge: 45 Hospital Course: REMEDIOS GANT, is a 67 F with a PMh as outlined who presents via the ED with a complaint of chest pain. Chest pain apparently started 2 days prior to admission, and was initially retrosternal, and radiated to her jaw. She didnt seek any treatment for this. Chest pain woke her up in the middle of the night. Chest pain recurred again last night and this morning, so she decided to come in to the ED.? She admitted to lightheadedness and dizziness as well as nausea and some abdominal pain. She denied any palpitations, cough, vomiting or diarrhea. Review of systems is otherwise negative. Vitals in the ED were temp of 97.9F, ME of 85, BP of 180/114 and RR of 16. She saturating at 97% on room air. CBC was unremarkable, and BMP was also unremarkable. Initial troponin was 1920. EKG showed st depression in lead 1 and inverted t waves in leads V1-6. She was admitted to be managed for nonstemi. SHe was started on heparin drip, and was also started on nitro drip due to intractable chest pain. Cardiology was consulted. Troponins trended upwards. She was started on dual antipltelet therapy as well as high intensity statin. She had 2D echo which showed EF of 47%, with sevre concentric LVH as well as hypokinesia of the apex and stage 1 diastolic dysfunction. She had cardiac cath which showed high grade mid LAD disease and high grade second diagonal vessel disease with mild left ventricular dystolic dysfunction. She was referred for immediate PCI and had a drug eluting stent placed in the mid LAD. She remained stable after the procedure and did well. She was discharged home on 02/13/2022 on aspirin, losartan, metoprolol, brilinta and high intensity statin. She is to follow up with her PCP and cardiology in 1-2 weeks. Patient was seen and examined prior to discharge. She had no active complaints and had an uneventful night. Review of systems otherwise negative. Labs and vitals reviewed. Home meds reviewed and reconciled. Physical Exam Const alert, oriented x3 and no apparent distress General Appearance: cooperative, comfortable and well kempt Orientation / Consciousness: awake Exam Limitations: no limitations HEENT normocephalic, head/scalp atraumatic, hearing grossly normal bilaterally and moist oral mucous membranes Mouth: oral and palatal mucosa normal Eyes PERRL, EOMs intact bilaterally and conjunctivae normal Neck no lymphadenopathy, supple and no JVD Resp normal respiratory effort, no retractions, no use of accessory muscles and clear to auscultation bilaterally Cardio regular rate, regular rhythm, S1 normal heart sound, S2 normal heart sound and no murmurs GI normal to inspection, nondistended, normoactive bowel sounds, soft to palpation, non-tender and non-distended Extremity normal to inspection, full ROM and no clubbing, cyanosis or edema Skin no rashes or lesions noted Neuro oriented x3, CN's II-XII intact bilaterally, moves all extremities and no focal motor deficits Sensorium / Orientation: awake and alert Motor Exam: strength 5/5 throughout Psych affect normal Medical Records Data Medical Nutrition Assessment Dietitian: Malnutrition Criteria Met Start: 02/12/22 11:20 Freq: Status: Active Protocol: Document 02/12/22 11:20 [facility] (Rec: 02/12/22 11:21 [facility] [id number]) Nutrition Malnutrition Evidence of Malnutrition Exists Yes Malnutrition (severe): Acute Illness/Injury Evidenced By Suboptimal Energy Intake ( Severe),Weight Loss (Severe) Clinical Problem Acute Disease or Injury Related Malnutrition Etiology severe malnutrition related to inadequate energy intake to meet est nutritional needs Signs/Symptoms as evidenced by 3.5% wt loss and <50% po intake x last 1-2 weeks. Status Active Problem Recommendation Dietitian Recommendations/Changes Will continue Cardiac diet as ordered. Will provide additional diet information as warranted by pt Will monitor for wt trends while in the hospital. Will readdress oral nutrition supplement at time of follow up if po intake fails to improve. Weight / BMI Weight Weight: 186 lb 4.65 oz Body Mass Index (BMI) 29.7 ABG / Lab / Microbiology Data Result Diagrams: 02/13/22 05:30 02/13/22 05:30 Laboratory: Laboratory Results - last 24 hr 02/12/22 12:05: WBC 10.2, RBC 4.04 L, Hgb 11.6 L, Hct 36.0 L, MCV 89.1, MCH 28.7, MCHC 32.2, RDW Std Deviation 45.6 H, RDW Coeff of Chivo 14.0, Plt Count 184, MPV 9.1 02/13/22 05:30: WBC 9.7, RBC 4.19 L, Hgb 11.8 L, Hct 36.5 L, MCV 87.1, MCH 28.2, MCHC 32.3, RDW Std Deviation 45.1 H, RDW Coeff of Chivo 14.2, Plt Count 186, MPV 9.1 02/13/22 05:30: Sodium 139, Potassium 3.6, Chloride 109 H, Carbon Dioxide 24.0, Anion Gap 6, BUN 9, Creatinine 0.62, Estim Creat Clear Calc 57.83, Est GFR (MDRD) Af Amer 123, Est GFR (MDRD) Non-Af 102, BUN/Creatinine Ratio 14.4, Glucose 116 H, Calcium 8.9, Total Bilirubin 1.00, AST 50 H, ALT 21, Alkaline Phosphatase 92, Total Protein 6.7, Albumin 3.0 L, Globulin 3.7, Albumin/Globulin Ratio 0.8 L Radiography Diagnostic Testing: Radiology Impression Echocardiogram 02/12/22 05:55 Interpretation Summary Normal LV size. The estimated ejection fraction is 47 %. [place] : Hypokinetic. Anterior [place] : Hypokinetic Severe concentric left ventricular hypertrophy. Stage 1 diastolic dysfunction. Contrast injection was performed. Ordering Physician: Lesly Cotton Performed By: Claire Sherman RCS D/C Instructions Discharge Diet: Low fat / Low cholesterol Discharge Activity: Return to Normal Activity Weight Bearing Status: Weight bearing as tolerated Call your doctor if you observe: Fever of 101 or Higher, Shortness of breath, Dizziness, Swelling in the ankles, Chest pain and Increased palpitations (irregular heartbeat) Meaningful Use Info Meaningful Use Diagnoses (Choose all that apply): AMI AMI/Post PCI/Angioplasty Aspirin given w/in 24hrs of arrival?: Yes ASA at discharge?: Yes Antiplatelet Therapy at Discharge:: Yes Statins at discharge?: Yes Cong/ARB at discharge?: Yes Beta Gee at discharge?: Yes Done w/ Acute [place] measure.: Yes Documented LVEF (%): 47 Discharge Plan Admission Admit Date/Time: 02/11/22 14:05 Primary Reason for Your Visit: nonstemi Attending Provider: Lesly Cotton Primary Care Provider: Scott Rankin Consulting Providers: Ciaran Walker Instructions Patient Instructions: Heart Attack Dc, Heart Attack Meds Discharge Orders/Prescriptions Prescriptions: New losartan 50 mg Tablet 50 mg PO DAILY Qty: 30 2RF atorvastatin 40 mg Tablet 40 mg PO QHS Qty: 30 2RF aspirin 81 mg Tablet,Delayed Release (Dr/Ec) 81 mg PO BREAKFAST Qty: 30 2RF Brilinta 90 mg Tablet 90 mg PO BID Qty: 60 2RF Continued metoprolol succinate 100 mg tablet extended release 24 hr 100 mg PO DAILY Label Comments: TAKE 1 TABLET BY MOUTH EVERY DAY cyanocobalamin (vitamin B-12) 1,000 mcg/mL solution 1 ml IM QMONTH Label Comments: Inject 1ml IM every other month levothyroxine 150 mcg tablet 1 tab PO DAILY Label Comments: Take 1 tablet by mouth once daily. Take on empty stomach. For thyroid. zolpidem 10 mg tablet 10 mg PO DAILY Label Comments: Take 1 tablet by mouth at bedtime as needed (insomnia) for up to 90 days. Referrals / Follow Up: Scott Rankin [Primary Care Provider] - Goyo Jarvis MD [Med Staff - Active Staff] - Within 2 Weeks Disposition Disposition (needs filled in before D/C Order can be placed): Home, Self Care Charges/Coding Visit Charges Inpatient E&M: 24782 Disch Hosp
[2022-02-13 14:04] LABS: Hemoglobin A1c 5.6 % (3.8-5.6)
== END 2022-02-13 11:40 | disposition home or self-care (01) | DRG 246 ==
LOC: ED 14:22 → PCU 14:36 → ICU 02-12 11:24
PROVIDERS: Specialist; Admitting Provider Student in an Organized Health Care Education/Training Program; Emergency Provider Emergency Medicine; Visit Provider Student in an Organized Health Care Education/Training Program
DX: I21.4 Non-ST elevation (NSTEMI) myocardial infarction (principal); E43 Unspecified severe protein-calorie malnutrition; I48.91 Unspecified atrial fibrillation; M35.00 Sjogren syndrome, unspecified; E78.2 Mixed hyperlipidemia; I10 Essential (primary) hypertension; E03.9 Hypothyroidism, unspecified; Z51.5 Encounter for palliative care; Z66 Do not resuscitate; Z86.79 Personal history of other diseases of the circulatory system
CPT/HCPCS: 71045; 80048; 80053; 80061; 83036; 83880; 84484; 85025; 85027; 85610; 85730; 92921; 92928; 93005; 93306; 93458; 99152; 99153; 99284; C1757; C1874; J7030; Q9957; A4216; C1725; C1769; C1887; C1894; C8929; C9600; J1327; Q9967

== ENCOUNTER → 2022-02-26 | Outpatient (CLI) | payer MEDICARE, MEDICAID, SELFPAY ==
--- NOTE | 2022-02-26 08:13 | PCM.CR.HP2 ---
CR - History & Physical - General Arrival date:: 02/26/22 Arrival time:: 08:10 Date of Referral:: 02/14/22 Date of CR Evaluation:: 02/26/22 Referring Physician: Dr. Goyo Jarvis Primary Diagnosis: PCI w/coronary stent - History of Present Cardiac Event Onset Date: Enter Onset Date of cardiac illnesses in Comment field below Acute Myocardial Infarction within 12 months:: Yes - Non-ST elevated myocardial infarction Coronary Artery Bypass Graft:: No Heart valve replacement or repair:: No PTCA or coronary stenting:: Yes - 02/14/2022 Heart or Heart-Lung Transplant:: No Heart Failure EF <35%:: No Type of Symptoms:: Crushing chest pain through neck and upper back and down both arms. Diaphoretic nausea associated with the pain. Occurred on a Saturday night and came in to the emergency room on Saturday. Interventions with present event:: heart cath with percutaneous coronary intervention - stenting Were there any complications?: none - Sleep Disorder Evaluation Hx of Sleep Apnea: No Do you snore loudly (louder than talking or can be heard through closed doors)?: No Do you often feel tired/ fatigued/ sleepy during daytime?: Yes Has anyone observed you stop breathing during sleep?: No History of Hypertension (for STOP score): Yes STOP Results: Positive - Medications Home Medications: Ambulatory Orders Medication Instructions Recorded cyanocobalamin (vitamin B-12) 1 ml IM QMONTH 02/11/22 1,000 mcg/mL injection solution levothyroxine 150 mcg tablet 1 tab PO DAILY 02/11/22 metoprolol succinate 100 mg 100 mg PO DAILY 02/11/22 tablet,extended release 24 hr zolpidem 10 mg tablet 10 mg PO DAILY 02/11/22 aspirin 81 mg tablet,delayed 81 mg PO BREAKFAST #30 tabs 02/13/22 release atorvastatin 40 mg tablet 40 mg PO QHS #30 tabs 02/13/22 losartan 50 mg tablet 50 mg PO DAILY #30 tabs 02/13/22 ticagrelor 90 mg tablet (Brilinta) 90 mg PO BID #60 tabs 02/13/22 - Allergies Allergies/Adverse Reactions: Allergies codeine Allergy (Verified 02/11/22 13:04) Swelling hydroxychloroquine [From Plaquenil] Allergy (Verified 02/11/22 13:04) Rash mecamylamine Allergy (Verified 02/11/22 13:04) Swelling morphine Allergy (Verified 02/11/22 13:52) Anaphylaxis Sulfa (Sulfonamide Antibiotics) Allergy (Verified 02/11/22 13:52) Anaphylaxis Advanced Directives - Advanced Directives Power of Heating And Air Conditioning Mechanic: No Living Will: No Advance Directives Information Provided: No Advance Directives on File: No DNR Order?:: No - MOLST See MOLST form: No Past Medical History - Covid-19 Screening Fever: No Unexplained muscle aches: No Current respiratory symptoms: No Upper respiratory infections symptoms: No Gastro-intestinal symptoms: No Lmd-Fpoi-Tswolo symptoms: No Has tested positive for COVID-19 in last 30 days: No Had contact w/person w/symptoms or Covid-19 (+) last 14 days: No Has High Risk Exposures ID'd by Health dept/Inf Control team: No 65 years or older:: Yes Lives in Assisted Living facility:: No Has a chronic lung disease or moderate to severe asthma:: No Has a serious heart condition:: No Immunocompromised:: No Severely obese (Body Mass Index of 40 or higher):: No Diabetic:: No Has chronic kidney disease undergoing dialysis:: No Has liver disease:: No - Past Medical Illness Medical History: Past Medical History (Last Updated 02/26/22 @ 08:29 by Zachary Shin, [employer]LECT[employer], [employer], BS) Atherosclerosis of coronary artery of [place] heart without angina pectoris I25.10 Atrial fibrillation I48.91 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 History of atrial fibrillation Z86.79 History of mixed connective tissue disease Z87.898 Hyperlipemia, mixed E78.2 Hypertension I10 Sjogrens syndrome M35.00 - Past Surgical History Surgical History: Past Surgical History (Last Updated 02/14/22 @ 17:35 by Rozina Bolton) History of coronary artery stent placement Onset Date: 02/12/22 Z95.5 Social History - Smoking History Smoking Status: Never smoker - Alcohol Use Alcohol Usage: No - Substance Abuse Hx Substance Use: No - Occupation Occupation (List type of work in comments):: Retired - disability - Hobbies, Recreation, Social Activities Hobbies: Other - gardening Recreational Activities: I am able to engage in most, but not all activities Social Environment - Status Marital Status: - Current Living Arrangements Living Environment:: Spouse - Children How many children do you have?: 2 Do any of your children live nearby?: Yes - within an hour and the other in [place] - Safety Do you feel safe in your surroundings?: Yes - Assistance Do you need any assistance at home?: no Review of Systems - Review of Systems Hints: Right click = Denies (Slash). Left click = Reports (Distant) Review of Present Symptoms: Reports: Shortness of Breath at Rest, Shortness of Breath with Exertion, Dizziness/Lightheadedness - a couple of times have has been dizzy and lightheaded., Fatigue, Heart Arrhythmia/Irregularities - history of atrial fibrillation, Appetite - Normal, Sleep - Normal. Denies: Appetite - Special Diet - trying to do better, making a more concious effort to avoid things., Sexual Changes - Pain Is Patient Pain Free?: No Pain Location: back - spine, joint muscles. Have been going to the [facility] after the COVID-19 second vaccine couldn't walk, having a lot of muscle pain and inability to walk. Pain Level: 7/10 Previous experience dealing with pain?: no medications now. Tylenol 600mg to 1200mg PRN Risk Factor Assessment - Vital Signs Temperature: 97.1 F Respiratory Rate: 16 Pulse Ox: 96 Blood Pressure: 126/90 - Pulse Pulse Rate: 94 Pulse Rhythm: Regular - Hypertension How long have you been treated?: Within the last year, although had issue prior. On medication(s)?: yes now. Blood Pressure Sitting - Left Arm: 126/90 - Blood Cholesterol/Lipids Total Cholesterol (mg/dL) Goal = less than 200 mg/dL: 250 HDL Cholesterol (mg/dL) Goal = less than 40 mg/dL: 46 LDL Cholesterol (mg/dL) Goal = less than 70 mg/dL: 182 Triglycerides (mg/dL) Goal = less than 150 mg/dL: 108 - Obesity Height: 5 ft 9 in Weight:: 186 lb Weight in Pounds: 186.0 lbs Weight Source: Standing Scale Body Mass Index (BMI): 27.4 Nutritional Referral for Obesity: No - Physical Inactivity Physical Inactivity: None - Nothing regular for exercise but physically active greater than 60 minutes daily - Risk Stratification Risk Guidelines: Lowest Risk: Risk Factor for Smoking, Risk Factor for Dyslipidemia, Risk Factor for Diabetes, Risk Factor for Obesity, Risk Factor for Sedentary Lifestyle, Risk Factor for Depression, Moderate Risk: Risk Factor for Hypertension - 126/90 Motivation - Motivation to Participate On a scale of 1 to 10, how prepared are you to commit to attending program?: 5 What do you see as barriers to successfully being able to complete the program?: joint muscle back and shortness of breath What do you see as the benefits of succesfully completing the program? In other words, what do you hope to get out of participating in the program?: getting stronger, getting heart stronger, more energy Are there issues you are dealing with that will interfere with completing the program?: Connective Muscle Issues since COVID vaccine reaction Do you have a spouse or signficant other, family or friends who will help support you to complete the program?: Daughter and Son-in-law, .
--- NOTE | 2022-02-26 08:14 | PCM.CR.ITP ---
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 Maintain the individual as the primary focus of care. 2. To improve the patient's quality of life. 3. Identification of cardiac risk factors and provide cardiac risk factor management. 4. Enhance the psychosocial status of the patient. 5. Reconditioning enough to allow the patient to resume customary activities. 6. Control symptoms of cardiac disease Personal Goals: Initial Assessment: Improve energy level, Improve knowledge of cardiac disease, Improve muscle strength and endurance, Improve diet and eating habits (eat healthier), Control risk factors (learn risk factor modification) Scale for measuring improvement of personal goals: Enter appropriate number in Comments. 2 = Unchanged. 3 = Slightly Better. 4 = Moderate Improvement. 5 = Met my Goal - Diagnosis & Disease Process Outcomes/Goals: Pt IDs own risk factors & lifestyle modifications by Session 10, Verbalizes symptoms of angina & response by session 3., Pt independently manages Plan/Interventions: Assist Pt to ID & engage in lifestyle modification to reduce CVD risk, Instruct on individual risk factors, Review symptoms of angina & emergency actions, Review secondary diagnosis & identify educational needs. - Safety Referral to Physical Therapy: No Referral to [facility] Case Management: No Fall Risk Assessed:: Yes Assistive Devices:: None Exercise - Initial Assessment - Visit Date of Eval: 02/26/22 Session #:: 0 - Pre-cardiac Rehab evaluation Mets: Pre-: >5 METS for 30 minutes by discharge - Physician Prescribed Exercise Modalities: Treadmill - concern of the patient if she can do the treadmill, Rower, Airdyne, NuStep, Lateral Replenishment Analyst Frequency: 3x/week for 12 weeks [36 sessions] Intensity: 60-80% of age predicted maximum heart rate reserve Current METSs:: 3.0 Target Heart Rate:: 100-130 Resting Blood Pressure: 126/90 EKG Type: Normal Sinus Rhythm Current Physical Activity or Exercising minutes: Physically active greater than 60 minutes daily - Outcomes & Goals Goals:: Verbalizes understanding of THR, RPE & goal METS by session 6, Documents in home exercise log/reports 30 min aerobic 5 day/wk by DC, Demonstrates accurate pulse taking by DC - Intervention & Plan Exercise Program Goals: Instruct on personal THR & RPE, Instruct on MET level & personal MET goal, Show patient to take own pulse /validate performance until accurate, Instruct on home exercise - Physical Activity Home Exercise Physical Activity - Home Exercise: Safe Exercise, Warm-up, Self-monitoring, Cool-Down, Home Exercise > 30 min Daily, Sitting Time <3 hours/daily - Outcomes & Goals Outcomes/Goals: Demonstrates correct Warm-up/exercise Cool-Down (S3) if = 2.5 METs, Verbalizes symptoms of exercise intolerance by Session 3 (S3), Demonstrate safe equipment use (S3) & follows exercise prescrition (6) - Intervention & Plan Plan/Intervention: Instruct warm-up & cool-down if exercising at > 2 METs, Instruct on symptoms of exercise intolerance & actions to take, Instruct & monitor on saf, Assess intial functional capacity & safety risk Nutrition - Initial Assessment - Program Goals Nutrition Program Goals: LDL <100 optimal. 100 - 129 Near optimal. 130 - 159 Borderline High. 160 - 189 High. Total Cholesterol <200 desirable. 200 - 239 Borderline High. >/= 240 High. HDL < 40 Low >/=60 High. Triglycerides <150 desirable. <199 optimal. VlDL 5 - 40. HgbA1C <7%. BMI <25 Patient has diagnosis of Hyperlipidemia (ICD E78)?: Yes - Visit Date of Assessment:: 02/26/22 Session #:: 0 - Pre-cardiac Rehab evaluation - Cholesterol/Lipids Triglycerides (mg/dL): 108 Total Cholesterol (mg/dL): 250 Nutrition - 30-Day Assessment Nutrition - 60-Day Assessment Nutrition - 90-Day Assessment Nutrition - Final Assessment Medical - Initial Assessment Medical- 30-Day Assessment Medical- 60-Day Assessment Medical- 90-Day Assessment Medical - Final Assessment Psychosocial - Initial Assess - VIsit Date of Eval: 02/26/22 Session #:: 0 - Pre-cardiac Rehab evaluation Not Applicable: Yes History of previous Mental disease:: No Self-reported stressors: Medical/Health, Recent Illness - Psychosocial Test Tool Used:: First Warning Systems QOL Cardiac, PHQ-9 Questionnaire phq-9 Severity: Severity. 1-4 Minimal Depression. 5-9 Mild Depression. 10-14 Moderate Depression. 15-19 Moderately Sever Depression. 20-27 Severe Depression. Rule: See PHQ-9 Score: 8 - Mild Depression related to recent illnesses - Referral to Behavioral Health PS - Interventions: Yes Referral to Physician if PHQ-9 if score is 5-9: - Dr. Rankin, Yes Attend Stress Management Classes, No Referral to Behavioral Health if PHQ-9 score >9:, No Referral to [facility] - Outcomes/Goals: See list Psychosocial Outcomes/Goals:: ID's personal stressors & 2 strategies to manage stress by discharge - Intervention/Plan: See List Interventions/Plan:: Assess stressors,coping strategies & signs of derpression on admission, Instruct/assist pt to develop coping & personal stress Mgt strategies, Instruct patient to recognize signs & symptoms of depression, Instruct patient to recog Psychosocial - 30-Day Assess Psychosocial - 60-Day Assess Psychosocial - 90-Day Assess Psychosocial - Final Assessmen Patient Health Questionnaire Initial Assessment 1. Little interest or pleasure in doing things: Several days 2. Feeling down, depressed, or hopeless: Several days 3. Trouble falling or staying asleep, or sleeping too much: Several days 4. Feeling tired or having little energy: More than half the days 5. Poor appetite or overeating: Several days 6. Feeling bad about yourself -- or that you are a failure or have let yourself or your family down: Several days 7. Trouble concentrating on things, such as reading the newspaper or watching television: Several days 8. Moving or speaking so slowly that other people could have noticed. Or the opposite - being so fidgety or restless that you have been moving around a lot more than usual: Not at all 9. Thoughts that you would be better off , or of hurting yourself in some way: Not at all How difficult have these problems made it for you to do your work, take care of things at home, or get along with other people?: Somewhat difficult Total Score: 8 ERIKA-Q SV Test - Statements CAD is a disease of the arteries in the heart: False Examples of risk factors for heart disease: True Angina is chest pain or discomfort: True The benefits of resistance training include: True Eating more meat and dairy products: False Anti-platelet medications such as aspirin are important: True The only effective way to manage stress: False An exercise warm-up slowly increases heart rate: True Prepared, processed foods usually have high sodium: True Depression is common after a heart attack: True The statin medications lower cholesterol: True To control blood pressure, lower the amount of sodium: True If someone gets chest discomfort during walking: False Transfats are partially hydrogenated vegetable oils: True Sleep apnea that is not treated increases the risk: I Don't Know To control cholesterol, one should become a vegetarian: False Someone knows if he/she is exercising at the right level: True Diabetes cannot be prevented with exercise & health eating: True Stress is a large risk for heart attack: True A diet that can help lower blood pressure is rich in: True - Total Score Total Correct Responses: 18 Self-Efficacy Initial Assessment We would like to know how confident you are in doing certain activities. Please select your confidence level for:: Select your confidence level for the following using the scale 1-10 where 1 is not at all confident and 10 is totally confident. Your score is the average of all 6 responses. Fatigue: How confident are you that you can keep the fatigue caused by your disease from interfering with the things you want to do? Select Number: 8 Physical Discomfort or Pain: How confident are you that you can keep the physical discomfort or pain of your disease from interfering with the things you want to do? Select Number: 8 Emotional Distress: How confident are you that you can keep the emotional distress caused by your disease from interfering with the things you want to do? Select Number: 8 Other Symptoms or Health Problems: How confident are you that you can keep other symptoms or health problems from interfering with the things you want to do? Select Number: 5 Different Tasks and Activities: How confident are you that you can do the different tasks and activities needed to manage your health condition so as to reduce your need to see a doctor? Select Number: 8 Medication: How confident are you that you can do things other than just taking medication to reduce how much your illness affects your everyday life? Select Number: 8 Total Score:: 7 Nutrition Survey - Nutrition Survey Initial Have you lost >10 lbs over the past 2 months without trying?: No Are you following a special diet at home for diabetes, low fat, or low salt?: Yes Are you interested in meeting with a dietitian for help understanding your diet?: No Do you eat less than 3 meals a day?: No Do you eat fatty meats (nassar, sausage, ribs, etc), fried foods, desserts, large amounts of salad dressings, margarine, butter, or cheese most days?: Yes Do you have food allergies? [Enter types in comment field]: No Do you eat in restaurants more than 3 times a week?: No Do you season food with salt, seasoning salt, or garlic salt?: No Do you used canned, boxed, frozen meals, or soups, seasoning packets?: Yes Total Score:: 3
[2022-02-26 08:23] VITALS: BP 126/90
[2022-02-26 08:48] VITALS: BP 126/90; PULSE 94; RESP 16; TEMP 36.2; O2SAT 96; BMI 27.4
== END | disposition home or self-care (01) ==
LOC: CR 08:07
PROVIDERS: Referring Provider Internal Medicine Cardiovascular Disease; Visit Provider Internal Medicine Cardiovascular Disease
DX: I25.10 Atherosclerotic heart disease of native coronary artery without angina pectoris (principal); Z95.5 Presence of coronary angioplasty implant and graft

== ENCOUNTER 2022-03-21 15:45 | Outpatient (RCR) | payer MEDICARE, MEDICAID, SELFPAY | END 2022-03-21 23:59 | LOC: CR 15:45 | PROVIDERS: Referring Provider Internal Medicine Cardiovascular Disease; Visit Provider Internal Medicine Cardiovascular Disease | DX: I25.10 Atherosclerotic heart disease of native coronary artery without angina pectoris (principal); I25.2 Old myocardial infarction; Z95.5 Presence of coronary angioplasty implant and graft | CPT/HCPCS: 93798 ==

== ENCOUNTER 2022-04-13 15:45 | Outpatient (RCR) | payer MEDICARE, MEDICAID, SELFPAY ==
--- NOTE | 2022-03-30 12:13 | CR.ITP_ITS ---
Diagnosis Exercise - 30-day Assessment - Visit Date of Eval: 03/30/22 Session #:: 10 - Physician Prescribed Exercise Modalities: Treadmill, Lateral [place] Intensity: 60-80% of age predicted maximum heart rate reserve Current METSs:: 3.5 Target Heart Rate:: 100-130 Current RPE:: 12-13 Maximum Excercise HR:: 100 Resting Blood Pressure: 144/84 Maximum Exercise Blood Pressure: 150/90 - Outcomes & Goals Goals:: Verbalizes understanding of THR, RPE & goal METS by session 6, Documents in home exercise log/reports 30 min aerobic 5 day/wk by DC, Demonstrates accurate pulse taking by DC, Other additional outcome/goals: see below - Intervention & Plan Exercise Program Goals: Instruct on personal THR & RPE, Instruct on MET level & personal MET goal, Show patient to take own pulse /validate performance until accurate, Instruct on home exercise, Other additional plan/int - 30-day Reassessments 30 day Reassessments:: Progressing - instructed on pulse taking - Physical Activity Home Exercise Physical Activity - Home Exercise: Safe Exercise, Warm-up, Self-monitoring, Cool-Down, Home Exercise > 30 min Daily, Sitting Time <3 hours/daily - Outcomes & Goals Outcomes/Goals: Demonstrates correct Warm-up/exercise Cool-Down (S3) if = 2.5 METs, Verbalizes symptoms of exercise intolerance by Session 3 (S3), Demonstrate safe equipment use (S3) & follows exercise prescrition (6), Other: See below - Intervention & Plan Plan/Intervention: Instruct warm-up & cool-down if exercising at > 2 METs, Instruct on symptoms of exercise intolerance & actions to take, Instruct & monitor on saf, Assess intial functional capacity & safety risk, Other See below - 30-day Reassessments 30 day Reassessments:: Progressing - instructed on proper cool down Nutrition - Initial Assessment Nutrition - 30-Day Assessment - Program Goals Nutrition Program Goals: LDL <100 optimal. 100 - 129 Near optimal. 130 - 159 Borderline High. 160 - 189 High. Total Cholesterol <200 desirable. 200 - 239 Borderline High. >/= 240 High. HDL < 40 Low >/=60 High. Triglycerides <150 desirable. <199 optimal. VlDL 5 - 40. HgbA1C <7%. BMI <25 Patient has diagnosis of Hyperlipidemia (ICD E78)?: Yes - Visit Date of Assessment:: 03/30/22 Session #:: 10 - Cholesterol/Lipids Determine presence & major risk factors that modify LDL goal: Hypertension or hypertensive medication, Low HDL cholesterol <40 mg/dL*, Family history of premature CHD in Male < 55 years: female <65 yearsFa, Age men > 45 years; women >/= 55 years Outcomes/Goals: Pt IDs own risk factors & lifestyle modifications by Session 10, Verbalizes symptoms of angina & response by session 3., Pt independently manages, Other Additional Outcomes/Goals: Intervention/Plan: Advocate for lipid panel cholesterol medication if applicable, Instruct on personal lipid levels & lipid goals/NCEP guidelines, Instruct on cholesterol, Other additional plan/int 30-day Reassessments:: Progressing - encouraged to have bloodwork - Diabetes (Other Core Measures) Diabetes Type: Not Applicable - Weight Mgt (Other Care) Weight:: 91.172 kg Outcomes/Goals: Pt sets, maintains & shows weight loss goal & trend during rehab, Other additional outcomes/goals Intervention/Plan: Instruct on ideal BMI & set weight loss goal w/patient, Assist pt to ID & incorporate diet changes for weight loss by S9, Refer to Structured Weight Loss program as appropriate, Encourage goal of using 250- 300dcal per session for weight loss, Other additional plan/interventions 30 day Reassessments:: Progressing - encouraged to go to nutrition class - Healthy Eating Habits Will attend diet classes:: Yes Outcomes/Goals:: Consume diet rich in vegs,fruits,whole grain/high fib er,fish,lean meat, Limit sat/trans fats,cholesterol & added salts & sugars, Other additional outcome/goals: 30-day Reassessments:: Progressing - encouraged to go to nutrition class - Education Gave educational materials for:: Signs & symptoms of hypoglycemia, Signs & symptoms of hyperglycemia, Relate diabetes to coronary artery disease, Healthy eating Nutrition - 60-Day Assessment Nutrition - 90-Day Assessment Nutrition - Final Assessment Core - Initial Assessment - Visit Date of Eval: 03/30/22 Session #:: 10 - Medication Compliance Doesn?t believe in the benefits of treatment?: No Believes medications are unnecessary or harmful?: No Has a concern about medication side effects?: No Expresses concern over the cost of medications?: No Outcomes/Goals: Verbalizes medications,desired effect & common side effects @ DC, Pt self-reports following medication regimen, Keeps card in wallet w/medications listed by DC, Other additional outcome/goals: Interventions/plans: Instruct on medication effects & side effects, Review medication list w/patient every two weeks, Instruct importance of taking meds as ordered & assist problem solving, Other additional - Tobacco Use Tobacco Use: Non-smoker - Hypertension Resting Blood Pressure:: 144/84 [place] [employer] Hypertension Guidelines: [place] [employer] Hypertension Guidelines. Normal BP Less than 120/80. Elevated BP 120/80. Hypertension Stage 1: BP 130-139/80-89. Hypertesnion Stage 2: BP 140 or higher/90 or higher. Hypertension Crisis: BP higher than 180/120 Peak Exercise Blood Pressure:: 150/90 Outcomes/Goals: Able to verbalize/achieve optimal blood pressure <130/80, Incorporates diet changes & exercise for blood pressure control by DC, Other additional outcomes/goals Interventions/plan: Instruct on optimal blood pressure, hypertension & medications, Instruct on effects of sodium, alcohol, stress, exercise &hypertension, Other additional plan/interventions - Tobacco Cessation Referral Smoking Cessation Referral:: No Individual Education/Counseling:: No Education Schedule Given:: Yes Core - 30-Day Assessment Core - 60-Day Assessment Core - 90 Day Assessment Core - Final Assessment Psychosocial - Initial Assess Psychosocial - 30-Day Assess Psychosocial - 60-Day Assess Psychosocial - 90-Day Assess Psychosocial - Final Assessmen Nutrition Survey
[2022-03-30 12:20] VITALS: BP 144/84; BP 150/90
== END 2022-04-20 23:59 ==
LOC: CR 15:45
PROVIDERS: Referring Provider Internal Medicine Cardiovascular Disease; Visit Provider Internal Medicine Cardiovascular Disease
DX: I25.10 Atherosclerotic heart disease of native coronary artery without angina pectoris (principal); I21.4 Non-ST elevation (NSTEMI) myocardial infarction; Z95.5 Presence of coronary angioplasty implant and graft
CPT/HCPCS: 93798

== ENCOUNTER 2022-04-15 14:17 | Emergency (ER) | payer MEDICARE, MEDICAID, SELFPAY ==
[2022-04-15 14:17] VITALS: BP 144/91; PULSE 93; RESP 18; TEMP 36; O2SAT 97; BMI 32.1
--- NOTE | 2022-04-15 14:31 | EKG12_ITS ---
Test Reason : cp Blood Pressure : / mmHG Vent. Rate : 095 BPM Atrial Rate : 095 BPM P-R Int : 156 ms QRS Dur : 082 ms QT Int : 338 ms P-R-T Axes : 000 236 071 degrees QTc Int : 424 ms Normal sinus rhythm Right superior axis deviation Pulmonary disease pattern Septal infarct , age undetermined ST & T wave abnormality, consider anterolateral ischemia Abnormal ECG Confirmed by CHARLINE WARNER, PAULETTE ([id number]), newspaper photo editor JAZZY GAMBOA ([id number]) on 04/17/2022 1:01:06 PM Referred By: Rex Confirmed By:PAULETTE OLIVIER MD
--- NOTE | 2022-04-15 14:31 | RAD_ITS ---
STUDY: X-RAY CHEST REASON FOR EXAM: Female, 67 years old. Chest pain TECHNIQUE: Single frontal view of the chest. COMPARISON: 02/11/2022 FINDINGS: There is no new focal consolidation. Normal size heart. Normal mediastinum and mallory. Normal visualized pulmonary arteries. Normal visualized aortic arch and descending thoracic aorta. There are diffuse degenerative changes of the visualized thoracic spine. There are postsurgical changes of the cervical spine. Normal visualized ribs, clavicles, and shoulders. There is no demonstrated abnormality of the visualized soft tissue structures of the upper abdomen. RAD/Chest 1 View (Portable) IMPRESSION: No acute cardiopulmonary process. Electronically Signed: Valeria Rodriguez MD at 14:58 EDT ,
[2022-04-15 14:32] VITALS: O2SAT 97
--- NOTE | 2022-04-15 14:38 | ED.VIS.CHEST ---
HPI History of Present Illness Chief Complaint: Chest Pain Narrative Narrative: Patient was at cardiac rehab 2 days ago she developed left-sided chest pain, it has gone now but at the time she had pain into her back, she had another episode yesterday of this pain and episode today. She was given isosorbide but she still has pain despite that. She has no pleuritic component no tearing sensation. She has no lower extreme edema or calf pain. The pain did radiate to her left arm again currently she is asymptomatic. She had 1 stent placed 2 months ago and she is in cardiac rehab. [facility] Medical History Atherosclerosis of coronary artery of [place] heart without angina pectoris Atrial fibrillation Essential hypertension Fibromyalgia Madhuri's disease History of atrial fibrillation History of mixed connective tissue disease Hyperlipemia, mixed Polymyalgia rheumatica Sjogrens syndrome Home Medications levothyroxine 150 mcg tablet 1 tab PO DAILY 02/11/22 [History Last Taken Unknown] aspirin 81 mg tablet,delayed release 81 mg PO BREAKFAST #90 tabs 03/13/22 [Rx Last Taken Unknown] atorvastatin 40 mg tablet 40 mg PO QHS #90 tabs 03/13/22 [Rx Last Taken Unknown] cyanocobalamin (vitamin B-12) 1,000 mcg/mL injection solution 1,000 mcg IM [id number] 03/13/22 [History Last Taken Unknown] losartan 50 mg tablet 50 mg PO DAILY #90 tabs 03/13/22 [Rx Last Taken Unknown] metoprolol succinate 100 mg tablet,extended release 24 hr 100 mg PO DAILY #90 tabs 03/13/22 [Rx Last Taken Unknown] sumatriptan succinate 50 mg tablet 50 mg PO ONCE PRN Pain 03/13/22 [History Last Taken Unknown] ticagrelor 90 mg tablet (Brilinta) 90 mg PO BID #180 tabs 03/13/22 [Rx Last Taken Unknown] zolpidem 10 mg tablet 10 mg PO QHS 03/13/22 [History Last Taken Unknown] isosorbide mononitrate 30 mg tablet,extended release 24 hr 30 mg PO DAILY #60 tabs 04/13/22 [Rx Last Taken Unknown] Allergy/AdvReac Type Severity Reaction Status Date / Time codeine Allergy Swelling Verified 04/15/22 14:22 hydroxychloroquine Allergy Rash Verified 04/15/22 14:22 [From Plaquenil] mecamylamine Allergy Swelling Verified 04/15/22 14:22 morphine Allergy Anaphylaxis Verified 04/15/22 14:22 Sulfa (Sulfonamide Allergy Anaphylaxis Verified 04/15/22 14:22 Antibiotics) Family History Father CAD (coronary artery disease) CABG X 4 Cancer Squamous cell Brother CAD (coronary artery disease) CABG X2, stents Diabetes Brought on by trauma Cancer Acute myeloid leukemia Mother Lupus Surgical History Bartholin's cyst Fusion of spine, cervical region History of 2 sections History of cholecystectomy History of coronary artery stent placement (02/12/22) History of hysterectomy History of lumbar spinal fusion History of tonsillectomy Pelvic floor weakness in female Social History Smoking Status: Never smoker alcohol intake: never substance use type: does not use caffeine: Yes Type: carbonated beverages Number of servings: 1 ROS ROS ED ROS Narrative Past medical history: Reviewed Medications: Reviewed Social history: Noncontributory Review of systems: All systems negative except as indicated General: No fever Eyes: No visual changes ENT: No upper airway congestion, normal voice Neck: No neck pain Cardiovascular: Chest pain as in HPI Respiratory: No shortness of breath or cough Gastrointestinal: No abdominal pain, nausea vomiting or diarrhea Genitourinary: No dysuria Musculoskeletal: Denies myalgias no difficulty with ambulation Skin: No rash Neurological: No memory loss, confusion or any focal weakness Psych: No recent behavioral changes Hematologic: No easy bleeding or easy bruising EXAM Physical Exam Narrative Exam Narrative: Physical exam General: Well nourished, Well developed, No Acute Distress Head: Normocephalic, Atraumatic Eyes: Conjunctiva not pale ENT: Moist mucous membranes Neck: Supple, Nontender, No lymphadenopathy Cardiovascular: Regular rate, Regular rhythm Chest wall: Chest pain is not reproducible, no rash or skin lesions. Respiratory: No distress, CTA bilaterally Abdomen: Soft, Nontender, Nondistended Back: Nontender, Normal Inspection. Negative for: CVA tenderness Extremities: Nontender, No edema Skin: Normal color, No rash Neurological: Alert, Normal Strength, Normal Sensation Psychological: Normal affect Const Vital Signs: 04/15/22 14:17 04/15/22 14:22 04/15/22 14:32 Temperature 96.8 F L Temperature Source Temporal Pulse Rate 93 Respiratory Rate 18 Respiratory Pattern Normal Blood Pressure 144/91 H Blood Pressure Mean 108 Pulse Ox 97 97 Oxygen Delivery Method Room Air Room Air MDM MDM MDM Narrative Medical decision making narrative: Patient is ruled out for [place] with 2 troponins. She appears well she was symptomatic in the ED. She is to call Dr. Jarvis in the morning for follow-up, if her pain changes she is to return. Otherwise she appears well. Lab Data Labs: Laboratory Results - last 24 hr 04/15/22 04/15/22 04/15/22 14:25 14:25 16:45 WBC 8.2 RBC 4.33 Hgb 12.3 Hct 38.6 MCV 89.1 MCH 28.4 MCHC 31.9 L RDW Std Deviation 47.1 H RDW Coeff of Chivo 14.5 Plt Count 233 MPV 9.4 Immature Gran % (Auto) 0.400 Neut % (Auto) 66.9 Lymph % (Auto) 21.5 [place] % (Auto) 8.8 Eos % (Auto) 2.0 Baso % (Auto) 0.4 Absolute Neuts (auto) 5.5 Absolute Lymphs (auto) 1.76 Nucleated RBC % 0 Sodium 142 Potassium 3.6 Chloride 106 Carbon Dioxide 26.0 Anion Gap 10 BUN 13 Creatinine 0.86 Estim Creat Clear Calc 67.25 Est GFR (MDRD) Af Amer 85 Est GFR (MDRD) Non-Af 70 BUN/Creatinine Ratio 15.1 Glucose 96 Calcium 9.6 Troponin I High Sens 17 18 Radiography Diagnostic Testing: Clinical Impression(s) from Imaging Studies Chest X-Ray 04/15/22 14:31 IMPRESSION: No acute cardiopulmonary process. Electronically Signed: Valeria Rodriguez MD at 14:58 EDT , Chest x-ray read by [facility] is unremarkable EKG Initial EKG: Comments: Sinus rhythm with rate of 95. Normal SD and QTc intervals. There is ST changes in the lateral leads in 1 and aVL there is very subtle less than half a millimeter elevation, in the lateral precordial leads there is ST depression about half a millimeter to 1 mm, this is slightly changed from February 13, 2022. Discharge Plan Triage Chief Complaint: Chest Pain ED Provider: Brooks Garcia Dx/Rx/DC Orders Clinical Impression: Chest pain, CAD (coronary artery disease) Instructions: ED Chest Pain, Uncertain Cause Prescriptions: No Action sumatriptan succinate 50 mg tablet 50 mg PO ONCE PRN (Reason: Pain) aspirin 81 mg tablet,delayed release (DR/EC) 81 mg PO BREAKFAST Qty: 90 3RF atorvastatin 40 mg tablet 40 mg PO QHS Qty: 90 3RF losartan 50 mg tablet 50 mg PO DAILY Qty: 90 3RF metoprolol succinate 100 mg tablet extended release 24 hr 100 mg PO DAILY Qty: 90 3RF Brilinta 90 mg tablet 90 mg PO BID Qty: 180 3RF levothyroxine 150 mcg tablet 1 tab PO DAILY Label Comments: Take 1 tablet by mouth once daily. Take on empty stomach. For thyroid. cyanocobalamin (vitamin B-12) 1,000 mcg/mL solution 1,000 mcg IM [id number] zolpidem 10 mg tablet 10 mg PO QHS Label Comments: Take 1 tablet by mouth at bedtime as needed (insomnia) for up to 90 days. isosorbide mononitrate 30 mg tablet extended release 24 hr 30 mg PO DAILY Qty: 60 0RF Primary Care Provider: Scott Rankin Referrals: Goyo Jarvis MD [Med Staff - Active Staff] - 1 Day Scott Rankin [Primary Care Provider] - 2 Days Disposition Disposition: Home, Self Care
[2022-04-15 14:42] LABS: Absolute Lymphocyte Count 1.76 X10^3/uL (0.83-4.51); Absolute Neutrophil Count 5.5 X10^3/uL (2.0-7.7); Basophil# 0.03 X10^3/uL; Basophil% 0.4 % (0-1); Eosinophil# 0.16 X10^3/uL; Hematocrit 38.6 % (37-47); Hemoglobin 12.3 g/dL (12.0-15.0); Lymphocyte # 1.76 X10^3/ul (0.83-4.51); Lymphocyte % 21.5 % (19-41); Mean Corp Hgb Conc 31.9 g/dL (32-36); Mean Corpuscular Hgb 28.4 pg (27.0-32.0); Mean Corpuscular Volume 89.1 fL (81-99); Mean Platelet Vol. 9.4 fl (6.2-12.0); Monocyte# 0.72 X10^3/uL; Monocyte% 8.8 % (0-10); NRBC Flagged by Analyzer 0 % (0-5); Neutrophil # 5.47 X10^3/uL (2.7-7.7); Neutrophil % 66.9 % (47-70); Platelet Count 233 K/mm3 (150-450); RBC Distribution Width CV 14.5 % (11.6-14.6); RBC Distribution Width SD 47.1 fl (35.1-43.9); Red Blood Count 4.33 M/mm3 (4.2-5.4); White Blood Count 8.2 K/mm3 (4.4-11.0)
[2022-04-15 14:59] LABS: Anion Gap 10 (5-15); BUN 13 mg/dL (7-18); BUN/Creat Ratio 15.1 RATIO (10-20); Calcium,Total 9.6 mg/dL (8.5-10.1); Chloride 106 mmol/L (98-107); Creatinine, Serum 0.86 mg/dL (0.55-1.02); EST Glomerular Filtration Rate 70 mL/min (>60); Est Glom Filt Rate - Afr Amer 85 mL/min (>60); Estimated Creatinine Clearance 67.25 ml/min; Glucose 96 mg/dL (74-106); Potassium 3.6 mmol/L (3.5-5.1); Sodium Level 142 mmol/L (136-145); Troponin-I HS (w/2H Reflex) 17 pg/mL (3.0-54.0)
[2022-04-15 16:41] LABS: Reflex Troponin-HS? (from REC) Y
[2022-04-15 17:15] LABS: Troponin-I HS 18 pg/mL (3.0-54.0)
[2022-04-15 18:42] VITALS: BP 140/89; PULSE 74; RESP 16
[2022-04-15 18:48] VITALS: BP 140/89; PULSE 74; RESP 16
== END 2022-04-15 18:48 | disposition home or self-care (01) ==
PROVIDERS: Emergency Provider Emergency Medicine; Visit Provider Emergency Medicine
DX: R07.9 Chest pain, unspecified (principal); M35.3 Polymyalgia rheumatica; I48.91 Unspecified atrial fibrillation; I25.10 Atherosclerotic heart disease of native coronary artery without angina pectoris; I10 Essential (primary) hypertension; E78.2 Mixed hyperlipidemia; Z95.5 Presence of coronary angioplasty implant and graft; E06.3 Autoimmune thyroiditis
CPT/HCPCS: 71045; 80048; 84484; 85025; 93005; 99284; A4216

== ENCOUNTER → 2022-04-23 | Outpatient (CLI) | payer MEDICARE, MEDICAID, SELFPAY ==
--- NOTE | 2022-04-23 18:47 | STRESSREP ---
Stress Test Report Exercise myocardial perfusion stress test. 67-year-old lady with a history of recent anterior myocardial infarction. Stress protocol: Resting EKG demonstrates sinus rhythm with a rate of 68 bpm normal intervals are noted. T wave inversions are noted in the anterior leads. Resting blood pressure is 140/82 mmHg. The patient exercised according to regular Dayron protocol for a total duration of 6 minutes. The maximum heart rate attained was 127 bpm which was 82% of max impacted heart rate the maximum workload was 7 metabolic equivalents. At rest there were no ST wave changes noted suggest ischemia, T wave inversions were present at rest and with peak exercise T wave inversions persisted. No ST changes were noted to suggest ischemia. The patient did experience minimal chest discomfort at peak exercise. The peak blood pressure was 194/92 mmHg. Myocardial perfusion protocol. 14.1 mCi of technetium 99m sestamibi was injected at rest. The patient exercised according to regular Dayron protocol for 6 minutes and at peak exercise 44.4 mCi of technetium 99m sestamibi was injected stress images were obtained stress and rest images were reconstructed in comparing the short axis vertical long and horizontal long axis. Gated images were also obtained Perfusion SPECT analysis: Review of the stress images demonstrate a reduced perfusion noted in the mid anterior wall on the stress images. The rest of the images appear to be normally perfused. The resting images similarly demonstrate mildly reduced perfusion in the mid anterior wall. A previous anterior infarct cannot be completely excluded. No obvious ischemia is noted. Gated SPECT analysis: The gated ejection fraction is 73%. Conclusion: Exercise myocardial perfusion stress test with no obvious ischemia noted. Previous anterior infarct is present.
== END | disposition home or self-care (01) ==
PROVIDERS: Referring Provider Internal Medicine Cardiovascular Disease; Visit Provider Internal Medicine Cardiovascular Disease
DX: I25.119 Atherosclerotic heart disease of native coronary artery with unspecified angina pectoris (principal)
CPT/HCPCS: 78452; 93017; A9500; A4216

== ENCOUNTER 2022-05-11 15:45 | Outpatient (RCR) | payer MEDICARE, MEDICAID, SELFPAY ==
[2022-04-21 01:35] VITALS: BP 144/84; BP 150/90
--- NOTE | 2022-04-30 11:35 | CR.ITP_ITS ---
Diagnosis Exercise - 60-day Assessment - Visit Date of Eval: 04/30/22 Session #:: 19 - Physician Prescribed Exercise Modalities: Treadmill, Rower, Airdyne, NuStep, SciFit, Lateral Kingfisher Frequency: 3x/week for 12 weeks [36 sessions] Intensity: 60-80% of age predicted maximum heart rate reserve Current METSs:: 3.5 Target Heart Rate:: 100-130 Current RPE:: 12-16 Maximum Excercise HR:: 105 Resting Blood Pressure: 140/82 Maximum Exercise Blood Pressure: 182/90 - Outcomes & Goals Goals:: Verbalizes understanding of THR, RPE & goal METS by session 6, Documents in home exercise log/reports 30 min aerobic 5 day/wk by DC, Demonstrates accurate pulse taking by DC, Other additional outcome/goals: see below - Intervention & Plan Exercise Program Goals: Instruct on personal THR & RPE, Instruct on MET level & personal MET goal, Show patient to take own pulse /validate performance until accurate, Instruct on home exercise, Other additional plan/int - 30-day Reassessments 30 day Reassessments:: Progressing - METS explained - Physical Activity Home Exercise Physical Activity - Home Exercise: Safe Exercise, Warm-up, Self-monitoring, Cool-Down, Home Exercise > 30 min Daily, Sitting Time <3 hours/daily - Intervention & Plan Plan/Intervention: Instruct warm-up & cool-down if exercising at > 2 METs, Instruct on symptoms of exercise intolerance & actions to take, Instruct & monitor on saf, Assess intial functional capacity & safety risk, Other See below - 30-day Reassessments 30 day Reassessments:: Progressing - safe exercise explained Nutrition - Initial Assessment Nutrition - 30-Day Assessment Nutrition - 60-Day Assessment - Program Goals Nutrition Program Goals: LDL <100 optimal. 100 - 129 Near optimal. 130 - 159 Borderline High. 160 - 189 High. Total Cholesterol <200 desirable. 200 - 239 Borderline High. >/= 240 High. HDL < 40 Low >/=60 High. Triglycerides <150 desirable. <199 optimal. VlDL 5 - 40. HgbA1C <7%. BMI <25 Patient has diagnosis of Hyperlipidemia (ICD E78)?: Yes - Visit Date of Assessment:: 04/30/22 Session #:: 19 - Cholesterol/Lipids (Other Core Measures) Determine presence & major risk factors that modify LDL goal: Hypertension or hypertensive medication, Low HDL cholesterol <40 mg/dL*, Family history of premature CHD in Male < 55 years: female <65 yearsFa, Age men > 45 years; women >/= 55 years Outcomes/Goals: Pt IDs own risk factors & lifestyle modifications by Session 10, Verbalizes symptoms of angina & response by session 3., Pt independently manages, Other Additional Outcomes/Goals: Intervention/Plan: Advocate for lipid panel cholesterol medication if applicable, Instruct on personal lipid levels & lipid goals/NCEP guidelines, Instruct on cholesterol, Other additional plan/int 30-day Reassessments:: Progressing - risk factors explained. - Diabetes (Other Core Measures) Diabetes Type: Not Applicable - Weight Mgt (Other Care) Weight:: 91.172 kg Diagnosis High BMI/Morbid Obesity BMI> 35% ICD-10 Z68: No 30 day Reassessments:: Progressing - attended nutrition class - Healthy Eating Habits Will attend diet classes:: Yes Outcomes/Goals:: Consume diet rich in vegs,fruits,whole grain/high fiber,fish,lean meat, Limit sat/trans fats,cholesterol & added salts & sugars, Other additional outcome/goals: Intervention/Plan:: Assess current eating habits, Other Additional plan/interventions 30-day Reassessments:: Progressing - attended nutrition class - Education Gave educational materials for:: Signs & symptoms of hypoglycemia, Signs & symptoms of hyperglycemia, Relate diabetes to coronary artery disease, Healthy eating Nutrition - 90-Day Assessment Nutrition - Final Assessment Core - Initial Assessment Core - 30-Day Assessment Core - 60-Day Assessment - Visit Date of Eval: 04/30/22 Session #:: 19 - Medication Compliance H/O mental health issues: depression, anxiety, or addiction?: No Doesn?t believe in the benefits of treatment?: No Believes medications are unnecessary or harmful?: No Has a concern about medication side effects?: No Expresses concern over the cost of medications?: No Outcomes/Goals: Verbalizes medications,desired effect & common side effects @ DC, Pt self-reports following medication regimen, Keeps card in wallet w/medications listed by DC, Other additional outcome/goals: Interventions/plans: Instruct on medication effects & side effects, Review medication list w/patient every two weeks, Instruct importance of taking meds as ordered & assist problem solving, Other additional 30-day Reassessments:: Progressing - taking meds - Tobacco Use Tobacco Use: Non-smoker - Hypertension Hypertension Diagnosis:: Hypertension ICD-10 I10 Resting Blood Pressure:: 140/82 [place] [employer] Hypertension Guidelines: [place] [employer] Hypertension Guidelines. Normal BP Less than 120/80. Elevated BP 120/80. Hypertension Stage 1: BP 130-139/80-89. Hypertesnion Stage 2: BP 140 or higher/90 or higher. Hypertension Crisis: BP higher than 180/120 Peak Exercise Blood Pressure:: 182/90 Outcomes/Goals: Able to verbalize/achieve optimal blood pressure <130/80, Incorporates diet changes & exercise for blood pressure control by DC, Other additional outcomes/goals Interventions/plan: Instruct on optimal blood pressure, hypertension & medications, Instruct on effects of sodium, alcohol, stress, exercise &hypertension, Other additional plan/interventions 30 day Reassessments:: Progressing - taking meds Core - 90 Day Assessment Core - Final Assessment Psychosocial - Initial Assess Psychosocial - 30-Day Assess Psychosocial - 60-Day Assess - VIsit Date of Eval: 04/30/22 History of previous Mental disease:: No Psychosocial - 90-Day Assess Psychosocial - Final Assessmen Nutrition Survey
[2022-04-30 11:42] VITALS: BP 140/82; BP 182/90
== END 2022-05-21 23:59 ==
LOC: CR 15:45
PROVIDERS: Referring Provider Internal Medicine Cardiovascular Disease; Visit Provider Internal Medicine Cardiovascular Disease
DX: I25.10 Atherosclerotic heart disease of native coronary artery without angina pectoris (principal); I25.2 Old myocardial infarction; Z95.5 Presence of coronary angioplasty implant and graft
CPT/HCPCS: 93798

== ENCOUNTER 2022-05-23 09:27 | Outpatient (RCR) | payer MEDICARE, MEDICAID, SELFPAY ==
[2022-05-22 00:32] VITALS: BP 140/82; BP 182/90
--- NOTE | 2022-05-28 09:06 | CR.ITP_ITS ---
Diagnosis Exercise - 90-day Assessment - Visit Date of Eval: 05/28/22 Comments:: 05/11/2022 Dr. Jarvis placed the patient on medical hold due to ongoing chest pain even with increase in medications. SHe was started on Renexa twice daily on 04/24/2022. Patient may have to have another heart cath procedure if chest pains persist. - Physician Prescribed Exercise Modalities: Treadmill, NuStep, Lateral [place] Frequency: 3x/week for 12 weeks [36 sessions] Intensity: 60-80% of age predicted maximum heart rate reserve Duration: 30 - 45 minutes Current METSs:: 4.0 Target Heart Rate:: 100-130 Current RPE:: 9-13 Maximum Excercise HR:: 118 Resting Blood Pressure: 118/60 Maximum Exercise Blood Pressure: 170/86 EKG Type: NSR to Sinus tach with occasional PACs Current Physical Activity or Exercising minutes: on medical hold - Outcomes & Goals Goals:: Verbalizes understanding of THR, RPE & goal METS by session 6, Documents in home exercise log/reports 30 min aerobic 5 day/wk by DC, Demonstrates accurate pulse taking by DC - Intervention & Plan Exercise Program Goals: Instruct on personal THR & RPE, Instruct on MET level & personal MET goal, Show patient to take own pulse /validate performance until accurate, Instruct on home exercise - 30-day Reassessments 30 day Reassessments:: Met - Physical Activity Home Exercise Physical Activity - Home Exercise: Safe Exercise, Warm-up, Self-monitoring, Cool-Down, Home Exercise > 30 min Daily, Sitting Time <3 hours/daily - Outcomes & Goals Outcomes/Goals: Demonstrates correct Warm-up/exercise Cool-Down (S3) if = 2.5 METs, Verbalizes symptoms of exercise intolerance by Session 3 (S3), Demonstrate safe equipment use (S3) & follows exercise prescrition (6) - Intervention & Plan Plan/Intervention: Instruct warm-up & cool-down if exercising at > 2 METs, Instruct on symptoms of exercise intolerance & actions to take, Instruct & monitor on saf, Assess intial functional capacity & safety risk - 30-day Reassessments 30 day Reassessments:: Met Nutrition - Initial Assessment Nutrition - 30-Day Assessment Nutrition - 60-Day Assessment Nutrition - 90-Day Assessment - Program Goals Nutrition Program Goals: LDL <100 optimal. 100 - 129 Near optimal. 130 - 159 Borderline High. 160 - 189 High. Total Cholesterol <200 desirable. 200 - 239 Borderline High. >/= 240 High. HDL < 40 Low >/=60 High. Triglycerides <150 desirable. <199 optimal. VlDL 5 - 40. HgbA1C <7%. BMI <25 Patient has diagnosis of Hyperlipidemia (ICD E78)?: Yes - Visit Date of Assessment:: 05/28/22 Session #:: 24 - Cholesterol/Lipids (Other Core Measures) Determine presence & major risk factors that modify LDL goal: Family history of premature CHD in Male < 55 years: female <65 yearsFa, Age men > 45 years; women >/= 55 years Outcomes/Goals: Pt IDs own risk factors & lifestyle modifications by Session 10, Verbalizes symptoms of angina & response by session 3., Pt independently manages Intervention/Plan: Instruct on personal lipid levels & lipid goals/NCEP guidelines, Instruct on cholesterol Referral to dietitian:: Yes - Medical Nutrition Therapy 30-day Reassessments:: Progressing - Diabetes (Other Core Measures) Diabetes Type: Not Applicable - Weight Mgt (Other Care) Not Applicable: Yes Height: 5 ft 9 in Weight:: 201 lb BMI: 29.7 Diagnosis Overweight/Obesity BMI> 30% ICD-10 E66: No Diagnosis High BMI/Morbid Obesity BMI> 35% ICD-10 Z68: No Outcomes/Goals: Pt sets, maintains & shows weight loss goal & trend during rehab Intervention/Plan: Instruct on ideal BMI & set weight loss goal w/patient 30 day Reassessments:: Progressing - Healthy Eating Habits Will attend diet classes:: Yes Outcomes/Goals:: Consume diet rich in vegs,fruits,whole grain/high fiber,fish,lean meat, Limit sat/trans fats,cholesterol & added salts & sugars Intervention/Plan:: Assess current eating habits 30-day Reassessments:: Progressing - Education Gave educational materials for:: Healthy eating Nutrition - Final Assessment Core - Initial Assessment Core - 30-Day Assessment Core - 60-Day Assessment Core - 90 Day Assessment - Visit Date of Eval: 05/28/22 Session #:: 24 - Medication Compliance Preventative Medication(s):: Aspirin, Ticagrelor/P2Y12 inhibitor, Statin/lipid, Beta shahla H/O mental health issues: depression, anxiety, or addiction?: No Doesn?t believe in the benefits of treatment?: No Believes medications are unnecessary or harmful?: No Has a concern about medication side effects?: No Expresses concern over the cost of medications?: No Outcomes/Goals: Verbalizes medications,desired effect & common side effects @ DC, Pt self-reports following medication regimen, Keeps card in wallet w/medications listed by DC Interventions/plans: Instruct on medication effects & side effects, Review medication list w/patient every two weeks, Instruct importance of taking meds as ordered & assist problem solving 30-day Reassessments:: Progressing - Tobacco Use Tobacco Use: Non-smoker - Hypertension Hypertension Diagnosis:: Hypertension ICD-10 I10 Resting Blood Pressure:: 118/60 [place] [employer] Hypertension Guidelines: [place] [employer] Hypertension Guidelines. Normal BP Less than 120/80. Elevated BP 120/80. Hypertension Stage 1: BP 130-139/80-89. Hypertesnion Stage 2: BP 140 or higher/90 or higher. Hypertension Crisis: BP higher than 180/120 Peak Exercise Blood Pressure:: 170/86 Outcomes/Goals: Able to verbalize/achieve optimal blood pressure <130/80, Incorporates diet changes & exercise for blood pressure control by DC Interventions/plan: Instruct on optimal blood pressure, hypertension & medications, Instruct on effects of sodium, alcohol, stress, exercise &hyperten tsefanie 30 day Reassessments:: Progressing - Tobacco Cessation Referral Smoking Cessation Referral:: No Individual Education/Counseling:: No Education Schedule Given:: Yes Core - Final Assessment Psychosocial - Initial Assess Psychosocial - 30-Day Assess Psychosocial - 60-Day Assess Psychosocial - 90-Day Assess - VIsit Date of Eval: 05/28/22 Session #:: 24 Not Applicable: Yes History of previous Mental disease:: No - Psychosocial Test Tool Used:: PHQ-9 Questionnaire phq-9 Severity: Severity. 1-4 Minimal Depression. 5-9 Mild Depression. 10-14 Moderate Depression. 15-19 Moderately Sever Depression. 20-27 Severe Depression. Rule: - Referral to Behavioral Health PS - Interventions: Yes Attend Stress Management Classes, No Referral to Behavioral Health if PHQ-9 score >9:, No Referral to [facility], No Referral to Physician if PHQ-9 if score is 5-9: - Outcomes/Goals: See list Psychosocial Outcomes/Goals:: ID's personal stressors & 2 strategies to manage stress by discharge - Intervention/Plan: See List Interventions/Plan:: Assess stressors,coping strategies & signs of derpression on admission, Instruct/assist pt to develop coping & personal stress Mgt strategies, Instruct patient to recognize signs & symptoms of depression, Instruct patient to recog - 30-day Reassessments: 30 day Reassessments:: Progressing Psychosocial - Final Assessmen Patient Health Questionnaire 90-Day Re-eval Assessment 1. Little interest or pleasure in doing things: Several days 2. Feeling down, depressed, or hopeless: Several days 3. Trouble falling or staying asleep, or sleeping too much: More than half the days 4. Feeling tired or having little energy: More than half the days 5. Poor appetite or overeating: Several days 6. Feeling bad about yourself -- or that you are a failure or have let yourself or your family down: Several days 7. Trouble concentrating on things, such as reading the newspaper or watching television: Several days 8. Moving or speaking so slowly that other people could have noticed. Or the opposite - being so fidgety or restless that you have been moving around a lot more than usual: Not at all 9. Thoughts that you would be better off , or of hurting yourself in some way: Not at all How difficult have these problems made it for you to do your work, take care of things at home, or get along with other people?: Not difficult at all Total Score: 9 Self-Efficacy 90-Day Re-eval Assessment We would like to know how confident you are in doing certain activities. Please select your confidence level for:: Select your confidence level for the following using the scale 1-10 where 1 is not at all confident and 10 is totally confident. Your score is the average of all 6 responses. Fatigue: How confident are you that you can keep the fatigue caused by your disease from interfering with the things you want to do? Select Number: 5 Physical Discomfort or Pain: How confident are you that you can keep the physical discomfort or pain of your disease from interfering with the things you want to do? Select Number: 5 Emotional Distress: How confident are you that you can keep the emotional distress caused by your disease from interfering with the things you want to do? Select Number: 5 Other Symptoms or Health Problems: How confident are you that you can keep other symptoms or health problems from interfering with the things you want to do? Select Number: 6 Different Tasks and Activities: How confident are you that you can do the different tasks and activities needed to manage your health condition so as to reduce your need to see a doctor? Select Number: 7 Medication: How confident are you that you can do things other than just taking medication to reduce how much your illness affects your everyday life? Select Number: 7 Total Score:: 5 Nutrition Survey
[2022-05-28 09:16] VITALS: BP 118/60; BP 170/86; BMI 29.7
== END 2022-06-20 23:59 ==
LOC: CR 09:27
PROVIDERS: Referring Provider Internal Medicine Cardiovascular Disease; Visit Provider Internal Medicine Cardiovascular Disease
DX: I25.10 Atherosclerotic heart disease of native coronary artery without angina pectoris (principal); I25.2 Old myocardial infarction; Z95.5 Presence of coronary angioplasty implant and graft
CPT/HCPCS: 93798

== ENCOUNTER → 2022-05-28 | Outpatient (CLI) | payer MEDICARE, MEDICAID, SELFPAY ==
--- NOTE | 2022-05-28 08:56 | ECHOLC_ITS ---
Version 2 Reason For Study: CAD/ASHD Procedure This was a limited 2D transthoracic echocardiogram. The study was technically difficult. Contrast injection was performed. Exam performed in department. Left Ventricle Normal LV size. Mild concentric left ventricular hypertrophy. Left ventricular systolic function is normal. The estimated ejection fraction is 65 %. No regional wall motion abnormalities noted. Right Ventricle Normal RV size. Normal systolic function. Atria Normal left atrium. Normal right atrium. Mitral Valve Normal mitral valve. Tricuspid Valve Normal tricuspid valve. Aortic Valve Trisinus/trileaflet aortic valve. Pulmonic Valve The pulmonic valve is not well visualized. Great Vessels Normal aortic root. The pulmonary artery is normal size. Normal inferior vena cava. Pericardium/Pleural No pericardial effusion. Medication 22 gauge I.V. with prn adaptor inserted into right arm. Diluted definity 2ml given slow IV push to enhance endocardial definition. MMode/2D Measurements & Calculations LVIDd: 4.8 cm IVSd: 1.4 cm Ao root diam: 3.0 cm LVIDs: 2.7 cm LVPWd: 1.3 cm FS: 43.5 % LAV(MOD-bp): 50.8 ml LVAd ap4: 26.9 cm2 SV(MOD-sp4): 39.7 ml LAV(MOD-bp) Indexed: 24.6 ml/m2 LVLd ap4: 7.8 cm LAV(MOD-sp2): 48.5 ml EDV(MOD-sp4): 78.6 ml LAV(MOD-sp4): 46.3 ml EDV(sp4-el): 78.4 ml LVAs ap4: 17.3 cm2 LVLs ap4: 6.7 cm ESV(MOD-sp4): 39.0 ml ESV(sp4-el): 37.8 ml EF(MOD-sp4): 50.4 % EF(sp4-el): 51.8 % SV(sp4-el): 40.6 ml LA A4 area: 18.7 cm2 LA dimension(2D): 3.4 cm RA A4 area: 17.6 cm2 ECHO/Echo Limited w/Contrast Interpretation Summary Normal LV size. Left ventricular systolic function is normal. The estimated ejection fraction is 65 %. Mild concentric left ventricular hypertrophy. Contrast injection was performed. Ordering Physician: Justin Holbrook Referring Physician: Justin Holbrook Performed By: Claire Sherman RCS
== END | disposition home or self-care (01) ==
LOC: CVS 08:55
PROVIDERS: Referring Provider Nurse Practitioner Family; Visit Provider Nurse Practitioner Family
DX: I25.5 Ischemic cardiomyopathy (principal); I10 Essential (primary) hypertension; Z95.5 Presence of coronary angioplasty implant and graft
CPT/HCPCS: 93308; Q9957; A4216; C8924

== ENCOUNTER → 2023-04-09 | Outpatient (CLI) | payer MEDICARE, MEDICAID, SELFPAY ==
[2023-04-09 11:10] LABS: Absolute Lymphocyte Count 1.81 X10^3/uL (0.83-4.51); Absolute Neutrophil Count 4.5 X10^3/uL (2.0-7.7); Basophil# 0.03 X10^3/uL; Basophil% 0.4 % (0-1); Eosinophil# 0.09 X10^3/uL; Eosinophils% 1.3 % (0-5); Hematocrit 41.1 % (37-47); Hemoglobin 12.8 g/dL (12.0-15.0); Lymphocyte # 1.81 X10^3/ul (0.83-4.51); Lymphocyte % 25.5 % (19-41); Mean Corp Hgb Conc 31.1 g/dL (32-36); Mean Corpuscular Hgb 28.6 pg (27.0-32.0); Mean Corpuscular Volume 91.7 fL (81-99); Mean Platelet Vol. 9.5 fl (6.2-12.0); Monocyte# 0.67 X10^3/uL; Monocyte% 9.4 % (0-10); NRBC Flagged by Analyzer 0 % (0-5); Neutrophil # 4.46 X10^3/uL (2.7-7.7); Platelet Count 228 K/mm3 (150-450); RBC Distribution Width CV 14.3 % (11.6-14.6); Red Blood Count 4.48 M/mm3 (4.2-5.4); White Blood Count 7.1 K/mm3 (4.4-11.0)
[2023-04-09 11:44] LABS: AST(SGOT) 17 U/L (15-37); Alanine Aminotransfer ALT/SGPT 24 U/L (13-56); Albumin, Serum 3.7 g/dL (3.2-5.0); Alkaline Phosphatase 111 U/L (45-117); Anion Gap 3 (5-15); BUN 14 mg/dL (7-18); BUN/Creat Ratio 15.8 RATIO (10-20); Bilirubin, Direct 0.13 mg/dL (0.00-0.30); Calcium,Total 9.2 mg/dL (8.5-10.1); Chloride 105 mmol/L (98-107); Cholesterol 272 mg/dL (200); Creatinine, Serum 0.89 mg/dL (0.55-1.02); EST Glomerular Filtration Rate 67 mL/min (>60); Est Glom Filt Rate - Afr Amer 82 mL/min (>60); Globulin 3.8 g/dL (2.2-4.2); Glucose 117 mg/dL (74-106); High Density Lipoprotein 46 mg/dL; Potassium 4.6 mmol/L (3.5-5.1); Protein, Total 7.5 g/dL (6.4-8.2); Sodium Level 136 mmol/L (136-145); Triglycerides 425 mg/dL
== END | disposition home or self-care (01) ==
LOC: LAB 10:18
PROVIDERS: PCP Family Medicine; Referring Provider Internal Medicine Cardiovascular Disease; Visit Provider Internal Medicine Cardiovascular Disease
DX: I10 Essential (primary) hypertension (principal); I48.0 Paroxysmal atrial fibrillation; I25.10 Atherosclerotic heart disease of native coronary artery without angina pectoris
CPT/HCPCS: 36415; 80048; 80061; 80076; 85025

== ENCOUNTER → 2023-05-10 | Outpatient (CLI) | payer MEDICARE, SELFPAY ==
--- NOTE | 2023-05-10 09:43 | STRESSREP_ITS ---
Stress Test Report Exercise myocardial perfusion stress test. 68-year-old lady with a history of coronary artery disease for screening stress test. Stress protocol: Resting EKG demonstrates normal sinus rhythm with a rate of 71 bpm resting blood pressure is 138/88 mmHg. The patient exercised according to the regular [facility] protocol for a total duration of 5 minutes attaining a maximum heart rate of 134 bpm which was 87% of maximum predicted heart rate; the maximum workload was 7 metabolic equivalents. At rest there were no ST or T wave changes noted to s uggest ischemia and at peak exercise upsloping ST changes only were noted which did not meet the criteria for ischemia. No clinical angina was noted the test was terminated due to the target heart rate being achieved/fatigue. The peak blood pressure was 212/100 mmHg. Rate-pressure product was 16,300. Myocardial perfusion protocol. 15 mCi of technetium 99m sestamibi was injected at rest. The patient exercised according to regular [facility] protocol for total duration of 5 minutes and at peak exercise 44 mCi of technetium 99m sestamibi was injected stress images were obtained stress and rest images were reconstructed in comparing the short axis vertical long and horizontal long axis. Gated images were also obtained. Perfusion SPECT analysis: Review of the stress images demonstrate normal uptake of tracer noted in all areas of the myocardium. The resting images similarly demonstrate normal uptake of tracer noted in all areas of the myocardium. No areas of reversibility are noted to suggest ischemia no previous infarct was noted. Gated SPECT analysis: The gated ejection fraction is 60%. Conclusion: Normal exercise myocardial perfusion stress test at a moderate workload Preserved ejection fraction. Hypertensive response to exercise
== END | disposition home or self-care (01) ==
PROVIDERS: PCP Family Medicine; Referring Provider Internal Medicine Cardiovascular Disease; Visit Provider Internal Medicine Cardiovascular Disease
DX: Z95.5 Presence of coronary angioplasty implant and graft (principal)
CPT/HCPCS: 78452; 93017; A9500; A4216

== ENCOUNTER → 2023-10-23 | Outpatient (CLI) | payer MEDICARE, SELFPAY ==
[2023-10-23 11:17] LABS: Absolute Lymphocyte Count 1.72 X10^3/uL (0.83-4.51); Absolute Neutrophil Count 3.7 X10^3/uL (2.0-7.7); Basophil# 0.04 X10^3/uL; Basophil% 0.7 % (0-1); Eosinophils% 1.6 % (0-5); Hematocrit 39.6 % (37-47); Hemoglobin 12.4 g/dL (12.0-15.0); Lymphocyte # 1.72 X10^3/ul (0.83-4.51); Lymphocyte % 28.3 % (19-41); Mean Corp Hgb Conc 31.3 g/dL (32-36); Mean Corpuscular Hgb 27.4 pg (27.0-32.0); Mean Corpuscular Volume 87.4 fL (81-99); Mean Platelet Vol. 9.7 fl (6.2-12.0); Monocyte# 0.49 X10^3/uL; Monocyte% 8.1 % (0-10); NRBC Flagged by Analyzer 0 % (0-5); Platelet Count 216 K/mm3 (150-450); RBC Distribution Width CV 14.2 % (11.6-14.6); RBC Distribution Width SD 45.1 fl (35.1-43.9); Red Blood Count 4.53 M/mm3 (4.2-5.4); White Blood Count 6.1 K/mm3 (4.4-11.0)
[2023-10-23 11:53] LABS: ALB/GLOB Ratio 0.9 RATIO (0.9-2.4); AST(SGOT) 16 U/L (15-37); Alanine Aminotransfer ALT/SGPT 20 U/L (13-56); Albumin, Serum 3.5 g/dL (3.2-5.0); Alkaline Phosphatase 107 U/L (45-117); Anion Gap 3 (5-15); BUN 13 mg/dL (7-18); BUN/Creat Ratio 17.6 RATIO (10-20); Calcium,Total 8.7 mg/dL (8.5-10.1); Chloride 107 mmol/L (98-107); Creatinine, Serum 0.74 mg/dL (0.55-1.02); EST Glomerular Filtration Rate 83 mL/min (>60); Est Glom Filt Rate - Afr Amer 101 mL/min (>60); Globulin 3.7 g/dL (2.2-4.2); Glucose 102 mg/dL (74-106); Protein, Total 7.2 g/dL (6.4-8.2); Sodium Level 137 mmol/L (136-145); Thyroid Stim Hormone (TSH) 0.87 uIU/mL (0.358-3.74)
== END | disposition home or self-care (01) ==
PROVIDERS: PCP Family Medicine; Referring Provider Nurse Practitioner Family; Visit Provider Nurse Practitioner Family
DX: R00.2 Palpitations (principal); I48.0 Paroxysmal atrial fibrillation; I25.5 Ischemic cardiomyopathy; I25.10 Atherosclerotic heart disease of native coronary artery without angina pectoris; E78.2 Mixed hyperlipidemia
CPT/HCPCS: 36415; 80053; 83735; 84443; 85025

== ENCOUNTER → 2023-11-06 | Outpatient (CLI) | payer MEDICARE, SELFPAY | END | disposition home or self-care (01) | LOC: PSN 08:40 | PROVIDERS: PCP Family Medicine; Referring Provider Nurse Practitioner Family; Visit Provider Nurse Practitioner Family | DX: R00.2 Palpitations (principal); I48.0 Paroxysmal atrial fibrillation; I25.5 Ischemic cardiomyopathy | CPT/HCPCS: 93225; 93226 ==

== ENCOUNTER → 2024-11-13 | Outpatient (CLI) | payer MEDICARE, SELFPAY ==
[2024-11-13 12:08] LABS: Absolute Lymphocyte Count 1.72 X10^3/uL (0.83-4.51); Absolute Neutrophil Count 3.8 X10^3/uL (2.0-7.7); Basophil# 0.02 X10^3/uL; Basophil% 0.3 % (0-1); Eosinophils% 1.6 % (0-5); Hematocrit 39.3 % (37-47); Hemoglobin 12.8 g/dL (12.0-15.0); Lymphocyte # 1.72 X10^3/ul (0.83-4.51); Lymphocyte % 27.5 % (19-41); Mean Corp Hgb Conc 32.6 g/dL (32-36); Mean Corpuscular Hgb 27.5 pg (27.0-32.0); Mean Corpuscular Volume 84.3 fL (81-99); Mean Platelet Vol. 9.2 fl (6.2-12.0); Monocyte# 0.55 X10^3/uL; Monocyte% 8.8 % (0-10); NRBC Flagged by Analyzer 0 % (0-5); Neutrophil # 3.84 X10^3/uL (2.7-7.7); Neutrophil % 61.3 % (47-70); Platelet Count 231 K/mm3 (150-450); RBC Distribution Width CV 14.5 % (11.6-14.6); RBC Distribution Width SD 44.3 fl (35.1-43.9); Red Blood Count 4.66 M/mm3 (4.2-5.4); White Blood Count 6.3 K/mm3 (4.4-11.0)
[2024-11-13 12:24] LABS: Erythrocyte Sedimentation Rate 34 mm/hr (0-30)
[2024-11-13 12:51] LABS: Thyroid Stim Hormone (TSH) 0.485 uIU/mL (0.300-4.200); Vitamin B12 872 pg/mL (180-914); Vitamin D,25 Hydroxy 15.6 ng/mL (30-100)
== END | disposition home or self-care (01) ==
LOC: LAB 11:06
PROVIDERS: PCP Family Medicine; Referring Provider Student in an Organized Health Care Education/Training Program; Visit Provider Student in an Organized Health Care Education/Training Program
DX: E55.9 Vitamin D deficiency, unspecified (principal); M35.3 Polymyalgia rheumatica; M79.7 Fibromyalgia; E53.8 Deficiency of other specified B group vitamins; R53.83 Other fatigue; E78.2 Mixed hyperlipidemia
CPT/HCPCS: 36415; 82306; 82607; 84443; 85025; 85652